=== PATIENT | female | born 1985 | race Caucasian/White ===

== ENCOUNTER → 2016-10-02 | Outpatient (CLI) | payer OTHER ==
--- NOTE | 2016-10-02 10:44 | REP ---
Clinical: Trauma. Injury. Technique: AP, lateral, bilateral oblique views of the left foot. Findings: Subtle nondisplaced fracture/injury at the base of the fifth metatarsal bone involving the proximal metaphysis cannot be excluded and should be correlated with physical examination and point of maximal tenderness. No further acute or healed fracture is identified. Remainder examination demonstrates age-related changes. No subcutaneous emphysema or radiodense foreign body. Impression: Cannot exclude subtle nondisplaced injury involving the proximal metaphysis at the base of the fifth metatarsal bone.
== END ==
LOC: M CLY 10:14
PROVIDERS: ATTEND Family Medicine
DX: S99.922A Unspecified injury of left foot, initial encounter (principal); X58.XXXA Exposure to other specified factors, initial encounter; Y92.89 Other specified places as the place of occurrence of the external cause

== ENCOUNTER → 2017-01-22 | Outpatient (REF) | payer OTHER ==
[2017-01-22 11:36] LABS: MEAN CORPUSCULAR HEMOGLOBIN 30.1 pg (27.0-33.0); MEAN CORPUSCULAR HGB CONC 33.5 g/dl (32.0-36.5); MEAN CORPUSCULAR VOLUME 89.8 fl (80.0-96.0); WHITE BLOOD COUNT 5.9 K/mm3 (4.0-10.0)
[2017-01-22 11:50] LABS: PROGESTERONE < 0.2 NG/ML
[2017-01-22 11:51] LABS: ESTRADIOL 137.7 PG/ML; FOLLICLE STIMULATING HORMONE 4.6 mIU/mL; LUTEINIZING HORMONE 9.2 mIU/mL
[2017-01-22 13:01] LABS: FREE T4 1.06 NG/DL (0.76-1.46)
== END ==
LOC: M SFHCCLAY 08:00
PROVIDERS: ATTEND Family Medicine
DX: N92.6 Irregular menstruation, unspecified (principal); Z01.419 Encounter for gynecological examination (general) (routine) without abnormal findings

== ENCOUNTER → 2017-07-18 | Outpatient (REF) | payer OTHER | LOC: M SFHCCLAY 16:19 | DX: D22.4 Melanocytic nevi of scalp and neck (principal) | CPT/HCPCS: 88305 ==

== ENCOUNTER → 2018-08-12 | Outpatient (CLI) | payer OTHER ==
--- NOTE | 2018-08-12 08:55 | REP ---
Clinical: Bilateral hand pain. Technique: AP, lateral, bilateral oblique views of the right and left hand. Findings: Osseous structures, joint space, and surrounding soft tissues are normal for age and symmetric. No overt osteoarthritic degenerative changes are appreciated. No acute fracture or dislocation identified. Surrounding soft tissues are unremarkable. Impression: Normal, age-appropriate bilateral hand radiograph series. Electronically Signed by Rod Oneill MD 08/12/2018 08:46 A
== END ==
LOC: M CLY 08:11
PROVIDERS: ATTEND Family Medicine
DX: M79.641 Pain in right hand (principal); M79.642 Pain in left hand

== ENCOUNTER → 2018-08-12 | Outpatient (REF) | payer OTHER ==
[2018-08-12 11:59] LABS: BASO % 0.6 % (0.0-1.0); EOS # 0.1 10^3/uL (0.0-0.50); EOS % 1.7 % (0.0-3.0); HEMATOCRIT 40.4 % (36.0-47.0); HEMOGLOBIN 13.3 g/dl (12.0-15.5); LYMPH # 2.3 10^3/uL (1.5-4.5); LYMPH % 32.2 % (24.0-44.0); MEAN CORPUSCULAR HEMOGLOBIN 28.6 pg (27.0-33.0); MEAN CORPUSCULAR HGB CONC 32.9 g/dl (32.0-36.5); MEAN CORPUSCULAR VOLUME 86.9 fl (80.0-96.0); MONO # 0.7 10^3/uL (0.0-0.8); MONO % 10.1 % (0.0-5.0); NEUTROPHILS % 55.3 % (36.0-66.0); PLATELET COUNT, AUTOMATED 250 10^3/uL (150-450); RED BLOOD COUNT 4.65 10^6/uL (4.00-5.40); WHITE BLOOD COUNT 7.2 10^3/uL (4.0-10.0)
[2018-08-12 12:27] LABS: ALT/SGPT 21 U/L (12-78); BILIRUBIN,TOTAL 0.4 MG/DL (0.2-1.0); BLOOD UREA NITROGEN 11 MG/DL (7-18); C REACTIVE PROTEIN QUANTITATIV < 0.30 MG/DL (0.00-0.30); CALCIUM LEVEL 8.4 MG/DL (8.5-10.1); CARBON DIOXIDE LEVEL 23 MEQ/L (21-32); CHLORIDE LEVEL 107 MEQ/L (98-107); CREATININE FOR GFR 0.73 MG/DL (0.55-1.30); GLOMERULAR FILTRATION RATE > 60.0 (>60); GLUCOSE, FASTING 90 MG/DL (70-100); POTASSIUM SERUM 4.3 MEQ/L (3.5-5.1); RHEUMATOID FACTOR QUANT < 10.0 IU/ML (<15.0); SODIUM LEVEL 138 MEQ/L (136-145); THYROXINE (T4) 10.7 UG/DL (4.5-12.0); TOTAL PROTEIN 6.8 GM/DL (6.4-8.2); TOTAL T3 126.1 NG/DL (60.0-181.0)
[2018-08-12 13:07] LABS: ERYTHROCYTE SEDIMENTATION RATE 7 mm/hr (0-20)
[2018-08-14 00:11] LABS: ANA (HEP2) Negative (.); CYCLIC CITRULLINATED PEPTIDE 4 units (0-19); Lyme Disease IgG/IgM Antibodie <0.91 ISR (0.00-0.90); Lyme Disease IgM Ab Quantitati <0.80 index (0.00-0.79)
== END ==
LOC: M SFHCCLAY 07:59
PROVIDERS: ATTEND Family Medicine
DX: M79.641 Pain in right hand (principal); M79.642 Pain in left hand; M25.50 Pain in unspecified joint; R53.83 Other fatigue

== ENCOUNTER 2019-01-10 07:03 | Day surgery (SDC) | payer OTHER ==
[~2019-01-10] VITALS: Ht 157.5 cm; Wt 65.4 kg
[~2019-01-10 07:03] MED LIST: LIDOCAINE 1% MDV 20ML VIAL SQ PRN; LR 1,000 ML IV ONE
[2019-01-10 08:02] LABS: URINE PREG TEST NEGATIVE (NEGATIVE)
[2019-01-10] MEDS ORDERED: dexameTHASONE 4 MG/ML 1ML VIAL (J1100) As Ordered ONE (08:18)
[2019-01-10] MEDS ORDERED: LIDOCAINE 2% INJ 100 MG/5 ML SDV (FOR ANES.) As Ordered ONE (08:18)
[2019-01-10] MEDS ORDERED: ONDANSETRON 4MG/2ML VIAL (J2405) As Ordered ONE (08:18)
[2019-01-10] MEDS ORDERED: PROPOFOL 200 MG/20 ML VIAL As Ordered ONE (08:18)
[2019-01-10] MEDS ORDERED: MIDAZOLAM INJ 2 MG/2 ML VIAL (J2250) As Ordered ONE (08:23)
[2019-01-10] MEDS ORDERED: fentaNYL 100 MCG/2 ML INJECTION (J3010) As Ordered ONE (08:23)
[2019-01-10] MEDS ORDERED: IBUP1TAB7 PO (08:56)
[2019-01-10] MEDS ORDERED: KETOROLAC 60 MG/2 ML VIAL (J1885) As Ordered ONE (09:05)
[2019-01-10] MEDS ORDERED: ACETAMINOPHEN 1000MG 100ML IV BTL (OFIRMEV) (J0131 PER 10MG) As Ordered ONE (09:05)
--- NOTE | 2019-01-10 09:40 | RO ---
DATE OF PROCEDURE: 01/10/2019 Mariya is a 33-year-old female with an extensive history of menorrhagia. After counseling in the office, a decision was made for D and C, hysteroscopy and NovaSure ablation. PREOPERATIVE DIAGNOSIS: Menorrhagia. POSTOPERATIVE DIAGNOSIS: Menorrhagia. PROCEDURE: 1. D and C. 2. Hysteroscopy. 3. NovaSure endometrial ablation. ANESTHESIA: General. SURGEON: Dr. Ribera COMPLICATIONS: None. ESTIMATED BLOOD LOSS: Less than 10 mL. SPECIMENS SENT TO THE LAB: Endometrial curetting. DESCRIPTION OF PROCEDURE: After visiting with the patient in the holding area and reaffirming informed consent, the patient was taken to the operating room where general anesthetic was found to be adequate. She was then draped and prepped in the usual sterile fashion in dorsal lithotomy position. At this point, a straight catheter in the bladder was performed for approximately 300 mL of clear urine. We then placed a weighted speculum in the posterior fornix of the vagina. Using a Nuñez retractor, the anterior lip of the cervix was then grasped with a single-tooth tenaculum. Uterus was sound to approximately 9 cm, giving a cavity length of 6. The cervix was then serially dilated. Hysteroscope was inserted. Normal cavity noted with bilateral tubal ostia visualized and fluffy endometrium also noted. At this point, the hysteroscope was removed. A sharp curettage of the endometrial lining was done and the tissues were sent to pathology for final diagnosis. We then placed the NovaSure device. The cavity length was adjusted to 6, cavity width to 4.5. Cavity test was performed. After passing the cavity test, the device was enabled, and the endometrial ablation cycle was then started. The cycle lasted approximately 76 seconds. Good ablative process noted. Good hemostasis noted. The patient tolerated the procedure well. She was then transferred to recovery room in stable condition.
[2019-01-10] MEDS ORDERED: PERCOCET 5MG/325MG TAB PO PRN ×2 (09:45)
[2019-01-10] MEDS ORDERED: fentaNYL 100 MCG/2 ML INJECTION (J3010) IV PRN (09:45)
[2019-01-10] MEDS ORDERED: LR 1,000 ML IV SCH (09:45)
[2019-01-10] MEDS ORDERED: ONDANSETRON 4MG/2ML VIAL (J2405) IV PRN (09:45)
[2019-01-10] MEDS ORDERED: METOCLOPRAMIDE INJ 10MG/2ML VIAL (J2765) IV PRN (09:45)
[2019-01-10 10:30] VITALS: BP 116/70
[2019-01-10] MEDS ORDERED: IBUPROFEN 800 MG TAB PO SCH (15:00)
== END 2019-01-10 11:08 | disposition home or self-care (01) ==
LOC: M SDC 07:03
PROVIDERS: ATTEND Obstetrics & Gynecology
DX: N92.0 Excessive and frequent menstruation with regular cycle (principal); G43.909 Migraine, unspecified, not intractable, without status migrainosus
CPT/HCPCS: 58356; 84703; 88305; J0131; J1100; J1885; J2250; J2405; J3010

== ENCOUNTER 2019-06-13 13:08 | Emergency (ER) | payer OTHER ==
[~2019-06-13] VITALS: Ht 157.5 cm; Wt 62.7 kg
[~2019-06-13 13:08] MED LIST changes: +IBUP1TAB7 PO; -LIDOCAINE 1% MDV 20ML VIAL SQ PRN; -LR 1,000 ML IV ONE
[2019-06-13] MEDS ORDERED: AZIT-12 (13:29)
[2019-06-13] MEDS ORDERED: PRED20TA (13:29)
[2019-06-13] MEDS ORDERED: IPRATROPIUM 0.5MG/ALBUTEROL 2.5MG INH SOL UD 3ML (DUONEB)(J7620) NEB ONE ×2 (13:30→16:00)
[2019-06-13 13:53] LABS: BASO # 0.1 10^3/uL (0.0-0.2); BASO % 0.3 % (0.0-1.0); EOS % 0.1 % (0.0-3.0); HEMATOCRIT 43.9 % (36.0-47.0); HEMOGLOBIN 14.8 g/dl (12.0-15.5); LYMPH # 2.3 10^3/uL (1.5-5.0); LYMPH % 13.9 % (24.0-44.0); MEAN CORPUSCULAR HEMOGLOBIN 29.4 pg (27.0-33.0); MEAN CORPUSCULAR HGB CONC 33.7 g/dl (32.0-36.5); MEAN CORPUSCULAR VOLUME 87.3 fl (80.0-96.0); MONO # 0.6 10^3/uL (0.0-0.8); MONO % 3.8 % (0.0-5.0); NEUTROPHILS % 80.7 % (36.0-66.0); PLATELET COUNT, AUTOMATED 344 10^3/uL (150-450); RED BLOOD COUNT 5.03 10^6/uL (4.00-5.40); WHITE BLOOD COUNT 16.2 10^3/uL (4.0-10.0)
[2019-06-13 14:02] LABS: INR 0.97; PROTHROMBIN TIME 12.6 SECONDS (11.8-14.0)
[2019-06-13 14:03] LABS: ABG BASE EXCESS -4.6 (-2.0-2.0); ABG HCO3 14.6 MEQ/L (22.0-26.0); ABG O2 SATURATION 98.9 % (95.0-99.0); ABG PARTIAL PRESSURE O2 127.2 mmHg (75.0-100.0); ABG STANDARD HCO3 20.8 MEQ/L (22.0-26.0); ABG TOTAL CO2 15.2 MEQ/L (22.0-29.0)
[2019-06-13 14:06] LABS: ABG PARTIAL PRESSURE CO2 17.1 mmHg (35.0-45.0)
[2019-06-13 14:20] LABS: ALBUMIN 4.1 GM/DL (3.2-5.2); ALT/SGPT 35 U/L (12-78); BILIRUBIN,DIRECT 0.1 MG/DL (0.0-0.2); BILIRUBIN,TOTAL 0.5 MG/DL (0.2-1.0); BLOOD UREA NITROGEN 8 MG/DL (7-18); CALCIUM LEVEL 10.5 MG/DL (8.5-10.1); CARBON DIOXIDE LEVEL 14 MEQ/L (21-32); CHLORIDE LEVEL 111 MEQ/L (98-107); CK-MB VALUE MASS < 1.0 NG/ML (<3.6); CPK CREATINE PHOSPHOKINASE 54 U/L (26-192); CREATININE FOR GFR 1.12 MG/DL (0.55-1.30); GLOMERULAR FILTRATION RATE 58.6 (>60); GLUCOSE, FASTING 133 MG/DL (70-100); MB/CK RELATIVE INDEX 1.85 (< OR =4); NT-PRO BNP 314 PG/ML (<125); POTASSIUM SERUM 3.7 MEQ/L (3.5-5.1); SODIUM LEVEL 141 MEQ/L (136-145); TOTAL PROTEIN 7.5 GM/DL (6.4-8.2); TROPONIN I < 0.02 NG/ML (< 0.10)
[2019-06-13] MEDS ORDERED: ISOVUE-370 76% 100ML VIAL (Q9967) As Ordered ONE (15:05)
--- NOTE | 2019-06-13 15:41 | REP ---
Clinical: Chest pain and shortness of breath with tachycardia . Technique: Axial contrast enhanced images from the thoracic inlet to the upper abdomen using 100 ml Isovue 370 intravenous contrast material with multiplanar re-formations. Findings: Satisfactory enhancement of the pulmonary vasculature is achieved and no filling defects are identified to suggest pulmonary embolus. Further evaluation of the mediastinum demonstrates normal thoracic aorta, heart and pericardium. The bilateral lung [place] are well aerated and clear without consolidation pleural effusion or pneumothorax. Tracheobronchial tree is patent. No nodule or mass lesion is identified. No adenopathy noted. Surrounding musculoskeletal structures intact Impression: No evidence for pulmonary embolus. No acute mediastinal or pleural parenchymal process. Electronically Signed by Rod Oneill MD 06/13/2019 03:32 P
[2019-06-13 16:30] VITALS: BP 135/78
[2019-06-13] MEDS ORDERED: PRED20TA PO (16:50)
[2019-06-13] MEDS ORDERED: VENTAER INH (16:50)
--- NOTE | 2019-06-13 18:22 | ECGEPIP ---
[facility] - ED Test Date: 2019-06-13 Pat Name: DEIDRA HARTMANN Department: Room: - Gender: Female Coffee Maker: : 1985 Requested By: MATEO Garcia Order Number: [id number] Reading MD: Sarita Gil Measurements Intervals [place] Rate: 106 P: 63 LA: 137 QRS: 80 QRSD: 97 T: 43 QT: 338 QTc: 450 Interpretive Statements SINUS TACHYCARDIA WITH OCCASIONAL VENTRICULAR PREMATURE COMPLEXES NSTTW abnormalities baseline artifact may affect interpretation No prior Electronically Signed on 06-13-2019 18:22:28 EST by Sarita Gil
== END 2019-06-13 17:05 | disposition home or self-care (01) ==
LOC: M ED 13:08 → EDBD 13:08 → M ED 17:05
DX: J06.9 Acute upper respiratory infection, unspecified (principal); F41.9 Anxiety disorder, unspecified; G43.909 Migraine, unspecified, not intractable, without status migrainosus; Z88.8 Allergy status to other drugs, medicaments and biological substances
CPT/HCPCS: 36415; 36600; 71275; 80048; 80076; 82550; 82553; 82803; 83880; 84443; 85025; 85610; 87040; 87486; 87581; 87633; 87798; 93005; 93041; 94640; 99285; Q9967

== ENCOUNTER → 2019-08-27 | Outpatient (REF) | payer OTHER ==
[~2019-08-27] MED LIST changes: +AZIT-12; +PRED20TA; +PRED20TA PO; +VENTAER INH
[2019-08-28 12:01] LABS: HEMATOCRIT 41.5 % (36.0-47.0); HEMOGLOBIN 13.8 g/dl (12.0-15.5); MEAN CORPUSCULAR HEMOGLOBIN 30.4 pg (27.0-33.0); MEAN CORPUSCULAR HGB CONC 33.3 g/dl (32.0-36.5); MEAN CORPUSCULAR VOLUME 91.4 fl (80.0-96.0); PLATELET COUNT, AUTOMATED 228 10^3/uL (150-450); RED BLOOD COUNT 4.54 10^6/uL (4.00-5.40); WHITE BLOOD COUNT 7.5 10^3/uL (4.0-10.0)
[2019-08-28 12:08] LABS: MONO SCRN NEGATIVE (NEGATIVE)
== END ==
LOC: M SFHCCLAY 15:20
PROVIDERS: ATTEND Nurse Practitioner Family
DX: J02.9 Acute pharyngitis, unspecified (principal)

== ENCOUNTER → 2019-10-22 | Outpatient (CLI) | payer OTHER | LOC: M LABSMTC 13:22 | PROVIDERS: ATTEND Family Medicine | DX: Z11.59 Encounter for screening for other viral diseases (principal); Z20.828 Contact with and (suspected) exposure to other viral communicable diseases ==

== ENCOUNTER → 2020-08-27 | Outpatient (CLI) | payer OTHER ==
[~2020-08-27] MED LIST changes: +EXCETAB33 PO
== END ==
LOC: M LABSMTC 11:16
PROVIDERS: ATTEND Anesthesiology
DX: Z01.812 Encounter for preprocedural laboratory examination (principal); Z20.822 Contact with and (suspected) exposure to COVID-19

== ENCOUNTER 2020-09-01 08:53 | Day surgery (SDC) | payer OTHER ==
[~2020-09-01] VITALS: Ht 157.5 cm; Wt 64.9 kg
[~2020-09-01 08:53] MED LIST changes: +LIDOCAINE 2% 100MG/5ML SDV (FOR ANES.) As Ordered ONE; +LR 1,000 ML IV ONE; +MIDAZOLAM INJ 2MG/2ML VIAL (J2250 PER 1MG) As Ordered ONE; +ROCURONIUM BROMIDE 50 MG/5 ML VIAL As Ordered ONE; +VASOPRESSIN INJ 20 UNITS/ML VIAL As Ordered ONE; +ceFAZolin SOD 2 GM in IV 1 EA IV ONE; +fentaNYL 100 MCG/2 ML INJECTION (J3010) As Ordered ONE; +propofoL 200 MG/20 ML VIAL As Ordered ONE
--- OUTSIDE RECORDS SUMMARY | 2020-09-01 08:58 | CCD ---
Author Author [facility] ems Organization [facility] ems Address Unknown Phone Unavailable Care Team Providers Care Varnish Melter Helper Name Role Phone Jesus Benavidez Unavailable PROBLEMS Type Condition ICD9-CM Code [id number]-CV Code Onset Dates Condition S tatus SNOMED Code Notes Problem Rectal pain K62.89 Active 92707066 Problem Migraine without aura and without status migrain osus, not intractable G43.009 Active 472624688 Problem Hemorrhoids, unspecified hemorrhoid type K64.9 Active 34435630 Problem Migraine 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, not intractable, unspecified migraine type G43.909 Active 34336935 Problem Migraine headache 346.90 Active 43135925 Problem Metrorrhagia N92.1 Active 51991310 Problem Pain of both hip joints M25.551 Active 95785944 8 Problem Coccyx pain M53.3 Active 28141125 Problem Irregular menses N92.6 Active 902614128 Problem Melanocytic nevi of scalp and neck D22.4 Activ e 146697258 ALLERGIES Allergen (clinical drug ingredient) Drug/Non Drug Allergy do cumented on EMR Reaction Allergy Type Onset Date Status sumatriptan Imitrex(ND Code:[address]-26) Chest Pain Drug Allergy Active Air Duo chest pain Non Drug Allergy Active rizatriptan Maxalt(ND Code:[address]-19) Anaphylaxis Drug Allergy Active ENCOUNTERS from 1985 to 2020-07-20 Encounter Location Date Provider Diagnosis [address] [address] Jun, Jesus Benavidez Migraine without status migrainosus, not intractable, unspecified migraine type G43.909 IMMUNIZATIONS Vaccine Route Administration Date Status TDAP 0.5mL (Boostrix) IM Intramuscular Apr 26, 2015 Administe red Influenza (6mo & up) Fluzone Unknown May 29, 2017 Ref used Influenza (6mo & up) Fluzone IM Intramuscular May 18, 2017 Ad ministered Influenza (6mo & up) Fluzone Unknown October 02, 2016 Ref used SOCIAL HISTORY Tobacco Use: Social History Observation Description Date Details (start date - stop date) Never Smoker Sex Assigned At : Social History Observation Description Sex Assigned At Unknown Audit Question Answer Notes Total Score: 1 Interpretation: Alcohol Education Language: Question Answer Notes Languages spoken: Luxembourgish Muslim: Question Answer Notes Muslim 08 Pentecostal No yazidi beliefs that would impact health care. Domestic Violence: Question Answer Notes Status: Sexual Hx: Question Answer Notes Had sex in the last 12 months (vaginal, oral, or anal)? Yes Have you ever had an STD? No with Men only Use protection? No Drug and Alcohol Question Answer Notes Total Score: 0 Interpretation: No problems reported Alcohol Screening: Question Answer Notes Did you have a drink containing alcohol in the past year? Ye s Points 1 Interpretation Negative How often did you have six or more drinks on one occas ion in the past year? Never (0 points) How many drinks did you have on a typica l day when you were drinking in the past year? 1 or 2 (0 points) How often did you have a drink containing alcohol in t he past year? Monthly or less (1 point) BMI Care Goal Follow-Up Question Answer Notes Above Normal BMI Follow-Up Dietary management educatio n, guidance, and counseling Tobacco Use: Question Answer Notes Are you a: never smoker REASON FOR REFERRAL No Information VITAL SIGNS No information MEDICATIONS Medication SIG (Take, Route, Frequency, Duration) Notes Start Da te End Date Status Relpax 20 MG 1 tablet Orally Once a day as needed for 26 days Jul, Active Symbicort 160-4.5 MCG/ACT 1 puff Inhalation Daily Active Probiotic - as directed Orally Activ e Albuterol Sulfate HFA 108 (90 Base) MCG/ACT 2 puffs as needed Inhalation every 6 hrs Active Multi For Her - as directed Orally A ctive Excedrin PM 500-38 MG 1 tablet at bedtime as needed Orally Once a day Active Diflucan 150 MG 1 tablet Orally qday for 7 day(s) Jun, Not-Taking PROCEDURES No Information RESULTS No Results REASON FOR VISIT PA Reyvow 50mg tablets, #03/14 MEDICAL (GENERAL) HISTORY Type Description Date Medical History Chronic back pain Medical History Migraines Surgical History 4 [place] teeth removed Surgical History Uterine ablation- Dr Devries 12/2018 Hospitalization History Childbirth x4 Hospitalization History Started at [facility] to [facility]-Fatigue,SOB 06/13/19 Hospitalization History Well now -SOB-Zpak and prednisone 06/09/19 Goals Section No Information Health Concerns No Information MEDICAL EQUIPMENT No Information MENTAL STATUS No Information FUNCTIONAL STATUS No Information ASSESSMENTS Encounter Date Diagnosis Assessment Notes Treatment Notes Treatm ent Clinical Notes Jun, Migraine 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, not intractable, unspecified migraine type (ICD-10 - G43.909) PLAN OF TREATMENT Medication Medication Name Sig Start Date Stop Date Relpax 20 MG 1 tablet Orally Once a day as needed for 26 days Jul, Next Appt Details Provider Name:Jesus Benavidez, 08:30:00 AM, [address] [place], [address], Insurance Providers Payer Name Payer Address Payer Phone Insured Name Patient Relati onship to Insured Coverage Start Date Coverage End Date [facility] [address] [facility] [phone] DEIDRA DESOUZA self
--- OUTSIDE RECORDS SUMMARY | 2020-09-01 08:58 | CCD ---
Author Author [facility] ems Organization [facility] ems Address Unknown Phone Unavailable Care Team Providers Care Disassembler Product Name Role Phone Jesus Benavidez Unavailable PROBLEMS Type Condition ICD9-CM Code YFF45-LW Code Onset Dates Condition S tatus W/U Status Risk SNOMED Code Notes Problem Migraine without aura and without status migrain osus, not intractable G43.009 Active confirmed 964585415 Problem Hemorrhoids, unspecified hemorrhoid type K64.9 Active confirmed 53013568 Problem Pain of both hip joints M25.551 Active confirmed 952130121 Problem Metrorrhagia N92.1 Active confirmed 8413008 3 Problem Rectal pain K62.89 Active confirmed 48939101 Problem Mild intermittent reactive airway disease without comp lication J45.20 Active confirmed 544450535 Problem Migraine headache 346.90 Active confirmed 37 268644 Problem Coccyx pain M53.3 Active confirmed 26132594 Problem Irregular menses N92.6 Active confirmed 386 837259 Problem Melanocytic nevi of scalp and neck D22.4 Activ e confirmed 702179454 Problem Migraine 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, not intractable, unspecified migraine type G43.909 Active confirmed 60547119 ALLERGIES Allergen (clinical drug ingredient) Drug/Non Drug Allergy do cumented on EMR Reaction Allergy Type Onset Date Status Air Duo chest pain Non Drug Allergy Active rizatriptan Maxalt([facility] Code:[address]-73) Anaphylaxis Drug Allergy Active naratriptan Amerge(ND Code:[address]-35) chest pressure Drug Allerg y Active budesonide / formoterol Symbicort(ND Code:[address]-24) Trigge rs migraines Drug Allergy Active sumatriptan Imitrex([facility] Code:[address]-94) Chest Pain Drug Allergy Active ENCOUNTERS from 1985 to 2020-08-20 Encounter Location Date Provider Diagnosis [facility] [place] [address] Aug Jesus Benavidez Visit for annual health examination Z00. 00 ; Migraine without status migrainosus, not intractable, unspecified migraine type G43.909 ; Mild intermittent reactive airway disease without complication J45.20 ; Skin tag L91.8 and Arthralgia, unspecified joint M25.50 IMMUNIZATIONS Vaccine Route Administration Date Status TDAP [...] Education Language: Question Answer Notes Languages spoken: Hebrew Adventism: Question Answer Notes Adventism 08 Mormonism No sikhism beliefs that would impact health care. Domestic [...] REASON FOR REFERRAL No Information VITAL SIGNS Weight 142.12 lbs Aug, Height 62 1/4 in Aug, BMI 25.78 kg/m2 Aug, Heart Rate 88 /min Aug, Respiratory Rate 16 /min Aug, Temperature 97.3 degrees Fahrenheit Aug, Oximetry 100ra Aug, Blood pressure systolic 111 mm Hg Aug, Blood pressure diastolic 72 mm Hg Aug, MEDICATIONS Medication SIG (Take, Route, Frequency, Duration) Notes Start Da te End Date Status Multi For Her - as directed Orally A ctive Relpax 20 MG 1 tablet Orally Once a day as needed for 26 days Jul, Active Excedrin PM 500-38 MG 1 tablet at bedtime as needed Orally Once a day Active Probiotic - as directed Orally Activ e Albuterol Sulfate HFA 108 (90 Base) MCG/ACT 2 puffs as needed Inhalation every 6 hrs Active PROCEDURES No Information RESULTS No Results REASON FOR VISIT YEARLY PX MEDICAL (GENERAL) HISTORY Type Description Date Medical History Chronic back pain Medical History Migraines Surgical History 4 [place] teeth removed Surgical History Uterine ablation- Dr Devries 12/2018 Hospitalization History Childbirth x4 Hospitalization History Started at [facility] to S -Fatigue,SOB 06/13/19 Hospitalization History Well now [facility] [place] Goals Section No Information Health Concerns No Information MEDICAL EQUIPMENT No Information MENTAL STATUS No Information FUNCTIONAL STATUS No Information ASSESSMENTS Encounter Date Diagnosis Assessment Notes Treatment Notes Treatm ent Clinical Notes Aug, Visit for annual health examination (ICD-10 - Z0 0.00) Imms are up to date. Screening is up to date. Aug, Migraine 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, not intractable, unspecified migraine type (ICD-10 - G43.909) We discussed options, triggers and at this point she is not needing or considering preventative daily meds. She is practicing as much avoidance as possible. She has not tolerated triptans well, has relpax to use if needed but frequency is improved off symbicort so will cont with current regimen. Pt agreeable. Aug, Mild intermittent reactive a irway disease without complication (ICD-10 - J45.20) Cont with pulmonary, even if only prn as she is improved. Aug, Skin tag (ICD-10 - L91.8) Will schedule removal. Aug, Arthralgia, unspecified joint (ICD-10 - M25.50) Stable currently. PLAN OF TREATMENT Treatment Notes Assessment Notes Clinical Notes Visit for annual health examination Imms are up to date. Screening is up to date. Migraine without status migrainosus, not intractable, unspecified migraine type We discussed options, triggers and at th is point she is not needing or considering preventative daily meds. She is practicing as much avoidance as possible. She has not tolerated triptans well, has relpax to use if needed but frequency is improved off symbicort so will cont with current regimen. Pt agreeable. Mild intermittent reactive airway disease without complicati on Cont with pulmonary, even if only prn as she is improved. Skin tag Will schedule remova l. Arthralgia, unspecified joint Stable cur rently. Next Appt Details skin tag removal Reason: Provider Name:Jesus Benavidez, 08:30:00 AM, [address] [place], [address], Insurance Providers Payer Name Payer Address Payer Phone Insured Name Patient Relati onship to Insured Coverage Start Date Coverage End Date [facility] [address] [facility] [address] DEIDRA HARTMANN self
--- OUTSIDE RECORDS SUMMARY | 2020-09-01 08:58 | CCD ---
Author Author [facility] ems Organization [facility] ems Address Unknown Phone Unavailable Care Team Providers Care Ct Technician Name Role Phone Jesus Benavidez Unavailable PROBLEMS Type Condition ICD9-CM Code VFF54-YP Code Onset Dates Condition S tatus SNOMED Code Notes Problem Rectal pain K62.89 Active 05685082 Problem Migraine without aura and without status migrain osus, not intractable G43.009 Active 858129957 Problem Hemorrhoids, unspecified hemorrhoid type K64.9 Active 84457210 Problem Migraine 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, not intractable, unspecified migraine type G43.909 Active 29911559 Problem Migraine headache 346.90 Active 17269224 Problem Metrorrhagia N92.1 Active 38806417 Problem Pain of both hip joints M25.551 Active 59824195 8 Problem Coccyx pain M53.3 Active 65685255 Problem Irregular menses N92.6 Active 370728125 Problem Melanocytic nevi of scalp and neck D22.4 Activ e 841298392 ALLERGIES Allergen (clinical drug ingredient) Drug/Non Drug Allergy do cumented on EMR Reaction Allergy Type Onset Date Status sumatriptan Imitrex(ND Code:[address]-27) Chest Pain Drug Allergy Active Air Duo chest pain Non Drug Allergy Active rizatriptan Maxalt(ND Code:[address]-53) Anaphylaxis Drug Allergy Active ENCOUNTERS from 1985 to 2020-07-19 Encounter Location Date Provider Diagnosis [address] [address] [place] [address] Jun Jesus Benavidez Migraine without status migrainosus, not [...] Education Language: Question Answer Notes Languages spoken: French Tenriism: Question Answer Notes Tenriism 08 Anabaptism No lutheran beliefs that would impact health care. Domestic [...] FOR REFERRAL No Information VITAL SIGNS Weight 149 lbs Jun, Height 62 1/4 in Jun, BMI 27.03 kg/m2 Jun, Heart Rate 82 /min Jun, Respiratory Rate 18 /min Jun, Temperature 98.4 degrees Fahrenheit Jun, Oximetry 99%RA Jun, Blood pressure systolic 124 mm Hg Jun, Blood pressure diastolic 85 mm Hg Jun, MEDICATIONS Medication SIG (Take, Route, Frequency, Duration) [...] Information RESULTS No Results REASON FOR VISIT struggling with migraines has been on something in the past MEDICAL (GENERAL) HISTORY Type Description Date Medical History Chronic back pain Medical History Migraines Surgical History 4 [place] teeth removed Surgical History Uterine ablation- Dr Devries 12/2018 Hospitalization History Childbirth x4 Hospitalization History Started at [facility] to [facility]-Fatigue,SOB 06/13/19 Hospitalization History Well now -SOB-Zpak and [...] and at this point she is not really interested in preventative daily meds. She is practicing as much avoidance as possible. She has not tolerated triptans well, will trial Reyvow. New medication risks and benefits reviewed and discussed with patient. Pt is agreeable and will recheck at scheduled appt in one month. PLAN OF TREATMENT Medication Medication Name Sig Start Date Stop Date Relpax 20 MG 1 tablet Orally Once a day as needed for 26 days Jul, Treatment Notes Assessment Notes Clinical Notes Migraine without status migrainosus, not intractable, unspecified migraine type We discussed options, triggers and at th is point she is not really interested in preventative daily meds. She is practicing as much avoidance as possible. She has not tolerated triptans well, will trial Reyvow. New medication risks and benefits reviewed and discussed with patient. Pt is agreeable and will recheck at scheduled appt in one month. Next Appt Details as scheduled Reason: Provider Name:Jesus Benavidez, 08:30:00 AM, [address], [place], [address], Insurance Providers Payer Name Payer Address Payer Phone Insured Name Patient Relati onship to Insured Coverage Start Date Coverage End Date [facility] [employer] [facility] [address] [facility] [phone] DEIDRA HARTMANN self
--- OUTSIDE RECORDS SUMMARY | 2020-09-01 08:58 | CCD ---
Author Author [facility] Syst ems Organization [facility] ems Address Unknown Phone Unavailable Care Team Providers Care Merchandise Collector Name Role Phone NorwayDeny pinzon Unavailable PROBLEMS Type Condition ICD9-CM Code KAX55-VO Code Onset Dates Condition S tatus SNOMED Code Notes Problem Rectal pain K62.89 Active 67116654 Problem Migraine without aura and without status migrain osus, not intractable G43.009 Active 737144394 Problem Hemorrhoids, unspecified hemorrhoid type K64.9 Active 09268579 Problem Migraine 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, not intractable, unspecified migraine type G43.909 Active 37776831 Problem Migraine headache 346.90 Active 94314600 Problem Metrorrhagia N92.1 Active 51369672 Problem Pain of both hip joints M25.551 Active 94089903 8 Problem Coccyx pain M53.3 Active 00021983 Problem Irregular menses N92.6 Active 209230950 Problem Melanocytic nevi of scalp and neck D22.4 Activ e 380462063 ALLERGIES Allergen (clinical drug ingredient) Drug/Non Drug Allergy do cumented on EMR Reaction Allergy Type Onset Date Status sumatriptan Imitrex([facility] Code:[address]-12) Chest Pain Drug Allergy Active rizatriptan Maxalt(ND Code:[address]-69) Anaphylaxis Drug Allergy Active ENCOUNTERS from 1983 to 2020-07-06 Encounter Location Date Provider Diagnosis [facility] [address] [place] [address] Jun Deny Estrada Oral candidiasis B37.0 IMMUNIZATIONS Vaccine Route Administration Date Status TDAP [...] Education Language: Question Answer Notes Languages spoken: Kenyan Sabianism: Question Answer Notes Sabianism 08 Tenriism No quaker beliefs that would impact health care. Domestic [...] Jun, BMI 27.03 kg/m2 Jun, Heart Rate 86 /min Jun, Respiratory Rate 16 /min Jun, Temperature 99.5 degrees Fahrenheit Jun, Oximetry 98 Jun, Blood pressure systolic 116 mm Hg Jun, Blood pressure diastolic 68 mm Hg Jun, MEDICATIONS Medication SIG (Take, Route, Frequency, Duration) Notes Start Da te End Date Status Multi For Her - as directed Orally A ctive Probiotic - as directed Orally Activ e Albuterol Sulfate HFA 108 (90 Base) MCG/ACT 2 puffs as needed Inhalation every 6 hrs Not-Taking Symbicort 160-4.5 MCG/ACT 2 puffs Inhalation Twice a day Active Excedrin PM 500-38 MG 1 tablet at bedtime as needed Orally Once a day Not-Taking Diflucan 150 MG 1 tablet Orally qday for 7 day(s) Jun, Active PROCEDURES No Information RESULTS No Results REASON FOR VISIT thrush MEDICAL (GENERAL) HISTORY Type Description Date Medical History Chronic back pain Medical History Migraines Surgical History 4 [place] teeth removed Surgical History Uterine ablation- Dr Devries 12/2018 Hospitalization History Childbirth x4 Hospitalization History Started at [facility]-ambulance to S -Fatigue,SOB 06/13/19 Hospitalization History Well now -SOB-Zpak and prednisone 06/09/19 Goals Section No Information Health Concerns No Information MEDICAL EQUIPMENT No Information MENTAL STATUS No Information FUNCTIONAL STATUS No Information ASSESSMENTS Encounter Date Diagnosis Assessment Notes Treatment Notes Treatm ent Clinical Notes Jun, Oral candidiasis (ICD-10 - B37.0) You could have an oral fungal infection caused by overgrowth of [place] albicans that causes creamy patches to appear on the tongue or other places in the mouth. This is usually a minor infection that sometimes can cause a burning or uncomfortable sensation. However, after completing the medication that was prescribed for that, having the other systemic symptoms, and having other family members with similar symptoms-- this is more likely because by a virus. Rest and drink clear fluids. Take Diflucan as directed. Close monitoring at this time. Jun, Other Medication/s di scussed with patient and questions answered. RTC as needed for worsening or unresolved symptoms. Patient states understanding and agreement with this plan. PLAN OF TREATMENT Medication Medication Name Sig Start Date Stop Date Diflucan 150 MG 1 tablet Orally qday for 7 day(s) Jun, Treatment Notes Assessment Notes Clinical Notes Oral candidiasis You could have an oral funga l infection caused by overgrowth of [place] albicans that causes creamy patches to appear on the tongue or other places in the mouth. This is usually a minor infection that sometimes can cause a burning or uncomfortable sensation. However, after completing the medication that was prescribed for that, having the other systemic symptoms, and having other family members with similar symptoms-- this is more likely because by a virus. Rest and drink clear fluids. Take Diflucan as directed. Close monitoring at this time. Next Appt Details 2 - 3 Days unless improving Reason: Provider Name:Jesus Benavidez, 08:30:00 AM, [address], [place], [address], Insurance Providers Payer Name Payer Address Payer Phone Insured Name Patient Relati onship to Insured Coverage Start Date Coverage End Date FORMERLY [facility] [place] [address] [facility] [phone] [phone] DEIDRA HARTMANN self
--- OUTSIDE RECORDS SUMMARY | 2020-09-01 08:58 | CCD ---
Author Author [facility] Syst ems Organization [facility] ems Address Unknown Phone Unavailable Care Team Providers Care Tire Fixer Name Role Phone Jesus Benavidez Unavailable PROBLEMS Type Condition ICD9-CM Code RMT86-WG Code Onset Dates Condition S tatus W/U Status Risk SNOMED Code Notes Problem Migraine without aura and without status migrain osus, not intractable G43.009 Active confirmed 766017844 Problem Hemorrhoids, unspecified hemorrhoid type K64.9 Active confirmed 43067686 Problem Pain of both hip joints M25.551 Active confirmed 442200257 Problem Metrorrhagia N92.1 Active confirmed 2401039 3 Problem Rectal pain K62.89 Active confirmed 30140137 Problem Mild intermittent reactive airway disease without comp lication J45.20 Active confirmed 981660495 Problem Migraine headache 346.90 Active confirmed 37 483118 Problem Coccyx pain M53.3 Active confirmed 17678226 Problem Irregular menses N92.6 Active confirmed 386 050726 Problem Melanocytic nevi of scalp and neck D22.4 Activ e confirmed 471435030 Problem Migraine 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, not intractable, unspecified migraine type G43.909 Active confirmed 08430432 ALLERGIES Allergen (clinical drug ingredient) Drug/Non Drug Allergy do cumented on EMR Reaction Allergy Type Onset Date Status Air Duo chest pain Non Drug Allergy Active rizatriptan Maxalt([facility] Code:[address]-51) Anaphylaxis Drug Allergy Active naratriptan Amerge(ND Code:[address]-48) chest pressure Drug Allerg y Active budesonide / formoterol Symbicort(ND Code:[address]-99) Trigge rs migraines Drug Allergy Active sumatriptan Imitrex([facility] Code:[address]-06) Chest Pain Drug Allergy Active ENCOUNTERS from 1983 to 2020-08-23 Encounter Location Date Provider Diagnosis [facility] [place] [place] [address] Aug Jesus Benavidez Skin tag L91.8 IMMUNIZATIONS Vaccine Route Administration Date Status TDAP [...] Education Language: Question Answer Notes Languages spoken: Czech Gnosticist: Question Answer Notes Gnosticist 08 Uatsdin No christianity beliefs that would impact health care. Domestic [...] FOR REFERRAL No Information VITAL SIGNS Weight 143 lbs Aug, Height 62 1/4 in Aug, BMI 25.94 kg/m2 Aug, Heart Rate 83 /min 04 Feb, 2021 Respiratory Rate 16 /min Aug, Temperature 99.1 degrees Fahrenheit Aug, Oximetry 100ra Aug, Blood pressure systolic 117 mm Hg Aug, Blood pressure diastolic 67 mm Hg Aug, MEDICATIONS Medication SIG (Take, [...] needed Inhalation every 6 hrs Active PROCEDURES from 1983 to 2020-08-23 Procedure Date Ordered Result Body Site Medication: Silver Nitrate Stick topically 2020-08-19 N/A RESULTS No Results REASON FOR VISIT Patient here for skin tag removal, procedure explained- consent signed MEDICAL (GENERAL) HISTORY Type Description Date Medical History Chronic back pain Medical History Migraines Surgical History 4 [place] teeth removed Surgical History Uterine ablation- Dr Devries 12/2018 Hospitalization History Childbirth x4 Hospitalization History Started at [facility] to S -Fatigue,SOB 06/13/19 Hospitalization History Well now -SOB-Zpak and prednisone 06/09/19 Goals Section No Information Health Concerns No Information MEDICAL EQUIPMENT No Information MENTAL STATUS No Information FUNCTIONAL STATUS No Information ASSESSMENTS Encounter Date Diagnosis Assessment Notes Treatment Notes Treatm ent Clinical Notes Aug, Skin tag (ICD-10 - L91.8) F/u prn. Pt agreeable. PLAN OF TREATMENT Treatment Notes Assessment Notes Clinical Notes Skin tag F/u prn. Pt agreeab le. Next Appt Details 1 Year Reason:Annual visit Provider Name:Jesus Blackwell Papoelyssa, 08:30:00 AM, [place] [place], [address], Follow Up:1 YearAnnual visit Insurance Providers Payer Name Payer Address Payer Phone Insured Name Patient Relati onship to Insured Coverage Start Date Coverage End Date [facility] [address] [facility] [address] [phone] DEIDRA HARTMANN self
--- OUTSIDE RECORDS SUMMARY | 2020-09-01 08:58 | CCD ---
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, not intractable, unspecified migraine type G43.909 Active 52669903 Problem Migraine headache 346.90 Active 00279435 Problem Metrorrhagia N92.1 Active 23734422 Problem Pain of both hip joints M25.551 Active 69375060 8 Problem Coccyx pain M53.3 Active 57939725 Problem Irregular menses N92.6 Active 405706627 Problem Melanocytic nevi of scalp and neck D22.4 Activ e 872668122 ALLERGIES Allergen (clinical drug ingredient) Drug/Non Drug Allergy do cumented on EMR Reaction Allergy Type Onset Date Status sumatriptan Imitrex([facility] Code:[address]-93) Chest Pain Drug Allergy Active rizatriptan Maxalt(ND Code:[address]-61) Anaphylaxis Drug Allergy Active ENCOUNTERS from 1983 to 2020-07-02 Encounter Location Date Provider Diagnosis [facility] [address] [place] [address] 18 Jun Deny Estrada IMMUNIZATIONS Vaccine Route Administration Date Status TDAP [...] Education Language: Question Answer Notes Languages spoken: Syriac Pentecostal: Question Answer Notes Pentecostal 08 Lutheran No mu-ism beliefs that would impact health care. Domestic [...] pain Medical History Migraines Surgical History 4 [place] teeth removed Surgical History Uterine ablation- Dr Devries 12/2018 Hospitalization History Childbirth x4 Hospitalization History Started at [facility] to S [facility]-Fatigue,SOB 06/13/19 Hospitalization History Well now [facility]-SOB-Zpak and prednisone 06/09/19 Goals Section No Information Health Concerns No Information MEDICAL EQUIPMENT No Information MENTAL STATUS No Information FUNCTIONAL STATUS No Information ASSESSMENTS No Information PLAN OF TREATMENT Medication Medication Name Sig Start Date Stop Date Diflucan 150 MG 1 tablet Orally qday for 7 day(s) Jun, Next Appt Details Provider Name:Jesus Benavidez, 08:30:00 AM, [address] , [place], [address], Insurance Providers Payer Name Payer Address Payer Phone Insured Name Patient Relati onship to Insured Coverage Start Date Coverage End Date FORMERLY [facility]AN [facility] [address] [facility] [address] DEIDRA HARTMANN self
--- OUTSIDE RECORDS SUMMARY | 2020-09-01 08:58 | CCD ---
Author Author [facility] Syst ems Organization 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, not intractable, unspecified migraine type G43.909 Active 17688942 Problem Migraine headache 346.90 Active 38230146 Problem Metrorrhagia N92.1 Active 75654623 Problem Pain of both hip joints M25.551 Active 94641849 8 Problem Coccyx pain M53.3 Active 99574399 Problem Irregular menses N92.6 Active 999319432 Problem Melanocytic nevi of scalp and neck D22.4 Activ e 939857862 ALLERGIES Allergen (clinical drug ingredient) Drug/Non Drug Allergy do cumented on EMR Reaction Allergy Type Onset Date Status sumatriptan Imitrex([facility] Code:[address]-25) Chest Pain Drug Allergy Active Air Duo chest pain Non Drug Allergy Active rizatriptan Maxalt([facility] Code:[address]-87) Anaphylaxis Drug Allergy Active ENCOUNTERS from 1983 to 2020-07-20 Encounter Location Date Provider Diagnosis [address] [address] Jul, Jesus Walkerlinkdede Migraine without status migrainosus, not intractable, unspecified [...] Education Language: Question Answer Notes Languages spoken: Albanian Samaritan: Question Answer Notes Samaritan 08 Sabianist No mu-ism beliefs that would impact health [...] RESULTS No Results REASON FOR VISIT PA Eletriptan (Relpax) 20mg tablets, #03/14 MEDICAL (GENERAL) HISTORY Type Description Date Medical History Chronic back pain Medical History Migraines Surgical History 4 [place] teeth removed Surgical History Uterine ablation- Dr Devries 12/2018 Hospitalization History Childbirth x4 Hospitalization History Started at [facility]-ambulance to [facility]-Fatigue,SOB 06/13/19 Hospitalization History Well now -SOB-Zpak and prednisone 06/09/19 Goals Section No Information Health Concerns No Information MEDICAL EQUIPMENT No Information MENTAL STATUS No Information FUNCTIONAL STATUS No Information ASSESSMENTS Encounter Date Diagnosis Assessment Notes Treatment Notes Treatm ent Clinical Notes Jul, Migraine 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, not intractable, unspecified migraine type (ICD-10 - G43.909) PLAN OF TREATMENT Medication Medication Name Sig Start Date Stop Date Relpax 20 MG 1 tablet Orally Once a day as needed for 26 days Jul, Next Appt Details Provider Name:Jesus Benavidez, 08:30:00 AM, [address] [place], [address], Insurance Providers Payer Name Payer Address Payer Phone Insured Name Patient Relati onship to Insured Coverage Start Date Coverage End Date [facility] [place] [address] [facility] [address] [phone] DEIDRA HARTMANN self
--- OUTSIDE RECORDS SUMMARY | 2020-09-01 08:58 | CCD ---
Author Author [facility] Organization [facility] Address Unknown Phone Unavailable Care Team Providers Care Clearance Rep Name Role Phone Rechlin, Pawan Mason DO Unavailable Unavailable Rechlin, Pawan Mason DO Unavailable Unavailable Rechlin, Pawan Mason DO Unavailable Unavailable Rechlin, Pawan Mason DO Unavailable Unavailable Rechlin, Pawan Mason DO Unavailable Unavailable Rechlin, Pawan Mason DO Unavailable Unavailable Rechlin, Pawan Mason DO Unavailable Unavailable Rechlin, Pawan Mason DO Unavailable Unavailable Rechlin, Pawan Mason DO Unavailable Unavailable Rechlin, Pawan Mason DO Unavailable Unavailable Rechlin, P Marlon DO Unavailable Unavailable Rechlin, P Marlon DO Unavailable Unavailable Rechlin, P Marlon DO Unavailable Unavailable Rechlin, P Marlon DO Unavailable Unavailable Rechlin, P Marlon DO Unavailable Unavailable Rechlin, P Marlon DO Unavailable Unavailable Rechlin, P Marlon DO Unavailable Unavailable Rechlin, P Marlon DO Unavailable Unavailable Rechlin, P Marlon DO Unavailable Unavailable Rechlin, P Marlon DO Unavailable Unavailable Rechlin, P Marlon DO Unavailable Unavailable Rechlin, P Marlon DO Unavailable Unavailable Rechlin, P Marlon DO Unavailable Unavailable Rechlin, P Marlon DO Unavailable Unavailable Rechlin, P Marlon DO Unavailable Unavailable Rechlin, P Marlon DO Unavailable Unavailable Rechlin, P Marlon DO Unavailable Unavailable Rechlin, P Marlon DO Unavailable Unavailable Rechlin, P Marlon DO Unavailable Unavailable Rechlin, P Marlon DO Unavailable Unavailable Rechlin, P Marlon DO Unavailable Unavailable Rechlin, P Marlon DO Unavailable Unavailable Rechlin, P Marlon DO Unavailable Unavailable Rechlin, P Marlon DO Unavailable Unavailable Rechlin, P Marlon DO Unavailable Unavailable Rechlin, P Marlon DO Unavailable Unavailable Rechlin, P Marlon DO Unavailable Unavailable Rechlin, P Marlon DO Unavailable Unavailable Rechlin, P Marlon DO Unavailable Unavailable Rechlin, P Marlon DO Unavailable Unavailable Rechlin, P Marlon DO Unavailable Unavailable Rechlin, P Marlon DO Unavailable Unavailable Rechlin, P Marlon DO Unavailable Unavailable Rechlin, P Marlon DO Unavailable Unavailable Rechlin, P Marlon DO Unavailable Unavailable Rechlin, P Marlon DO Unavailable Unavailable Rechlin, P Marlon DO Unavailable Unavailable Rechlin, P Marlon DO Unavailable Unavailable Re-disclosure Warning The records that you are about to access may contain information from federally-assisted alcohol or drug abuse programs. If such information is present, then the following federally mandated warning applies: This information has been disclosed to you from records protected by federal confidentiality rules (42 CFR part 2). The federal rules prohibit you from making any further disclosure of this information unless further disclosure is expressly permitted by the written consent of the person to whom it pertains or as otherwise permitted by 42 CFR part 2. A general authorization for the release of medical or other information is NOT sufficient for this purpose. The Federal rules restrict any use of the information to criminally investigate or prosecute any alcohol or drug abuse patient.The records that you are about to access may contain highly sensitive health information, the redisclosure of which is protected by Article 27-F of the [facility] Public Health law. If you continue you may have access to information: Regarding HIV / AIDS; Provided by facilities licensed or operated by the [facility] Office of Mental Health; or Provided by the [facility] Office for People With Developmental Disabilities. If such information is present, then the following [facility] mandated warning applies: This information has been disclosed to you from confidential records which are protected by state law. State law prohibits you from making any further disclosure of this information without the specific written consent of the person to whom it pertains, or as otherwise permitted by law. Any unauthorized further disclosure in violation of state law may result in a fine or custodial sentence or both. A general authorization for the release of medical or other information is NOT sufficient authorization for further disc losure. Allergies and Adverse Reactions Type Description Substance Reaction Status Data Source(s ) Drug allergy Imitrex Sumatriptan Chest Pain Active eCW1 ([facility]) Drug allergy Maxalt rizatriptan Anaphylaxis Active eCW1 ([facility]) Family History Family Member Name Family Member Gender Family Member Status Date o f Status Description Data Source(s) Unknown Male Problem MEDENT ([facility]) Encounters Encounter Providers Location Date Indications Data Source(s ) [place] [address] [facility] [address] 08/27/2020 12:00:00 AM EST eCW1 ([facility]) Unknown [address] [facility] [place] [address] 08/27/2020 12:00:00 AM EST eCW1 ([facility]) Outpatient [address] [facility] [place] [address] 08/19/2020 12:00:00 AM EST eCW1 ([facility]) Outpatient [address] [facility] [place] [address] 08/16/2020 12:00:00 AM EST eCW1 ([facility]) Unknown [address] [facility] [place] [address] 07/19/2020 12:00:00 AM EST eCW1 ([facility]) [place] [address] [facility] [address] 07/15/2020 12:00:00 AM EST eCW1 ([facility]) [place] [address] [facility] [address] 07/15/2020 12:00:00 AM EST eCW1 ([facility]) Outpatient [address] [facility] [place] [address] 07/02/2020 12:00:00 AM EST eCW1 ([facility]) Unknown [address] [facility] [place] [address] 07/02/2020 12:00:00 AM EST eCW1 ([facility]) Outpatient Attender: Marlon Ochoa/Brayan/Yaw/Flaco ndl 05/17/2020 09:30:00 AM EST MEDENT ([facility]) Outpatient Attender: Marlon Ochoa/Brayan/Yaw/Flaco ndananya 03/23/2020 03:00:00 PM EDT MEDENT ([facility]) Formerly [facility], [facility] [address] [facility] [address] 02/05/2020 12:00:00 AM EDT eCW1 ([facility]) [facility] [address] [place] [address] [place] [address] 08/29/2019 12:00:00 AM EST eCW1 ([facility]) [address] [place] [address] 08/27/2019 12:00:00 AM EST eCW1 ([facility]) [facility] [address] [place] [address] [place] [address] 08/27/2019 12:00:00 AM EST eCW1 ([facility]) [address], [place] [address] 08/14/2019 12:00:00 AM EST eCW1 ([facility]) Medications Medication Brand Name Start Date Product Form Dose Route Admi nistrative Instructions Pharmacy Instructions Status Indications Reaction Description Data Source(s) Ondansetron 4 MG Oral Tablet [Zofran] Zofran 4 MG Zofran 4 M G 08/27/2020 12:00:00 AM EST 1.0 {tablet} active Zo gianna 4 MG eCW1 ([facility]) Ondansetron 4 MG Oral Tablet [Zofran] Zofran 4 MG Zofran 4 M G 08/27/2020 12:00:00 AM EST 1.0 {tablet} active Zo gianna 4 MG eCW1 ([facility]) eletriptan 20 MG Oral Tablet ELETRIPTAN HYDROBROMIDE 07/20/2020 12:00:00 AM EST tablet 6 TAKE ONE TABLET BY MOUTH ONCE DA GAYLA NEEDED TAKE ONE TABLET BY MOUTH ONCE DAILY NEEDED SOLD: 07/20/2020 [facility] eletriptan 20 MG Oral Tablet [Relpax] Relpax 20 MG Relpax 20 MG 07/19/2020 12:00:00 AM EST 1.0 {tablet} active Re lpax 20 MG eCW1 ([facility]) eletriptan 20 MG Oral Tablet [Relpax] Relpax 20 MG Relpax 20 MG 07/19/2020 12:00:00 AM EST 1.0 {tablet} active Re lpax 20 MG eCW1 ([facility]) eletriptan 20 MG Oral Tablet [Relpax] Relpax 20 MG Relpax 20 MG 07/19/2020 12:00:00 AM EST 1.0 {tablet} active Re lpax 20 MG eCW1 ([facility]) eletriptan 20 MG Oral Tablet [Relpax] Relpax 20 MG Relpax 20 MG 07/19/2020 12:00:00 AM EST 1.0 {tablet} active Re lpax 20 MG eCW1 ([facility]) eletriptan 20 MG Oral Tablet [Relpax] Relpax 20 MG Relpax 20 MG 07/19/2020 12:00:00 AM EST 1.0 {tablet} active Re lpax 20 MG eCW1 ([facility]) eletriptan 20 MG Oral Tablet [Relpax] Relpax 20 MG Relpax 20 MG 07/19/2020 12:00:00 AM EST 1.0 {tablet} active Re lpax 20 MG eCW1 ([facility]) eletriptan 20 MG Oral Tablet [Relpax] Relpax 20 MG Relpax 20 MG 07/19/2020 12:00:00 AM EST 1.0 {tablet} active Re lpax 20 MG eCW1 ([facility]) Fluconazole 150 MG Oral Tablet [Diflucan] Diflucan 150 MG Di flucan 150 MG 07/02/2020 12:00:00 AM EST 1.0 {tablet} suspended Diflucan 150 MG eCW1 ([facility]) Fluconazole 150 MG Oral Tablet [Diflucan] Diflucan 150 MG Di flucan 150 MG 07/02/2020 12:00:00 AM EST 1.0 {tablet} suspended Diflucan 150 MG eCW1 ([facility]) 150 mg 07/02/2020 12:00:00 AM EST tablet 7 TAKE ONE TABLET BY MOUTH EVERY DAY FOR 7 DAYS TAKE ONE TABLET BY MOUTH EVERY DAY FOR 7 DAYS SOLD: 07/02/2020 [facility] Fluconazole 150 MG Oral Tablet [Diflucan] Diflucan 150 MG Di flucan 150 MG 07/02/2020 12:00:00 AM EST 1.0 {tablet} active Diflucan 150 MG eCW1 ([facility]) Fluconazole 150 MG Oral Tablet [Diflucan] Diflucan 150 MG Di flucan 150 MG 07/02/2020 12:00:00 AM EST 1.0 {tablet} suspended Diflucan 150 MG eCW1 ([facility]) Fluconazole 150 MG Oral Tablet [Diflucan] Diflucan 150 MG Di flucan 150 MG 07/02/2020 12:00:00 AM EST 1.0 {tablet} active Diflucan 150 MG eCW1 ([facility]) 10 mg 06/21/2020 12:00:00 AM EST maxine 70 DISSOLVE 1 TABLET BY MOUTH FIVE TIMES DAILY FOR 14 DAYS DISSOLVE 1 TABLET BY MOUTH FIVE TIMES DAILY FOR 14 DAY S SOLD: 06/22/2020 [facility] 160-4.5 mcg/actuation 06/15/2020 12:00:00 AM EST HFA aerosol inhaler 30 INHALE TWO PUFFS BY MOUTH TWICE A DAY WITH SPACER. RINSE MOUTH AFTER USING INHALE TWO PUFFS BY MOUTH TWICE A DAY WITH SPACER. RINSE MOUTH AFTER USING SOLD: 06/19/2020 [facility] 90 mcg/actuation 06/09/2020 12:00:00 AM EST HFA aerosol inha ler 8 INHALE TWO PUFFS BY MOUTH EVERY 4 HOURS NEEDED INHALE TWO PUFFS BY MOUTH EVERY 4 HOURS NEEDED SOLD: 06/19/2020 [facility] 60 ACTUAT Budesonide 0.08 MG/ACTUAT / fo rmoterol fumarate 0.0045 MG/ACTUAT Metered Dose Inhaler [Symbicort] Symbicort 05/17/2020 12:00:00 AM EST RESPIRATORY active MEDENT ( [facility]) 113-14 mcg/actuation 03/30/2020 12:00:00 AM EDT aerosol powdr breath activated 1 INHALE ONE PUFF BY MOUTH TWICE A DAY INHA LE ONE PUFF BY MOUTH TWICE A DAY SOLD: 04/02/2020 [facility] Airduo Respiclick 113/14 Airduo Respiclick 113/14 03/29/2020 12:00: 00 AM EDT ORAL completed MEDENT ([facility], ) INHALER, ASSIST DEVICES 03/24/2020 12:00:00 AM EDT spacer 1 USE DIRECTED WITH SYMBICORT USE DIRECTED WITH SYMBICORT SOLD: 03/25/2020 [facility] Aerochamber W/Flowsignal 03/23/2020 12:00:00 AM EDT active MEDENT ([facility], ) 60 ACTUAT Budesonide 0.16 MG/ACTUAT / fo rmoterol fumarate 0.0045 MG/ACTUAT Metered Dose Inhaler [Symbicort] Symbicort 03/23/2020 12:00:00 AM EDT RESPIRATORY completed MEDENT ( [facility], ) Insurance Providers Payer name Policy type / Coverage type Policy ID Covered libertarian ID Covered libertarian's relationship to sears Policy Sears Plan Information [facility] [id number] SP [id number] [facility] [id number] SP [id number] [facility] O [id number] S [id number] [facility]-Medicaid [id number] ANS-Medicaid [id number] Ghi FHP-(DO Not Use) Medigap Part B [id number] Self [id number] [facility] Community Plan Commercial [id number] Self [id number] Ghi FHP-(DO Not Use) Medigap Part B [id number] Self [id number] [facility] Plan Commercial [id number] Self [id number] Ghi FHP-(DO Not Use) Medigap Part B [id number] Self [id number] [facility] Community Plan Commercial [id number] Self [id number] Ghi FHP-(DO Not Use) Medigap Part B [id number] Self [id number] [facility] Community Plan Commercial [id number] Self [id number] [employer]CE[employer] BCBS P [id number] S [id number] [employer] P [id number] S [id number] BLUE [employer] ANN PLAN [id number] SP [id number] BL[employer] PLAN [id number] SP [id number] HMO BLUE [id number] SP [id number] Problems, Conditions, and Diagnoses Code Display Name Description Problem Type Effective Dates Data Source(s) J45.20 [id number] Mild intermittent reactive airwa y disease without complication Problem 08/16/2020 12:00:00 AM EST eCW1 ([facility]) Surgeries/Procedures Procedure Description Date Indications Data Source(s) Medication: Silver Nitrate Stick topically 08/19/2020 12:00:00 AM EST eCW1 ([facility]) Spirometry 03/23/2020 12:00:00 AM EDT M BELINDA ([facility], ) Aerosol Or Vapor Inhalations 03/23/2020 12:00:00 AM ED T MEDFELIZ ([facility], ) STREP A ASSAY W/OPTIC 08/27/2019 12:00:00 AM EST eCW1 ([facility]) Results ID Date Data Source [id number] 08/27/2020 09:40:00 AM EST [facility] Name Value Range Interpretation Code Description Data Christiana rce(s) Supporting Document(s) SARS coronavirus 2 RNA Not Detected [facility] [place] This lab was ordered by [facility] and reported by [facility]. ID Date Data Source [id number] 10/22/2019 01:15:00 PM EDT [facility] Name Value Range Interpretation Code Description Data Christiana rce(s) Supporting Document(s) SARS CORONAVIRUS 2 RNA [facility] This lab was ordered by [facility] and reported by [facility]. ID Date Data Source GATS (NEGATIVE STREP SCREEN) 08/27/2019 12:00:00 AM EST eCW1 ([facility]) Name Value Range Interpretation Code Description Data Christiana rce(s) Supporting Document(s) FULL REPORT IN LAB NOTES (eCW and Medent). GATS CULTURE (NEG STREP SCR) eCW1 ([facility]) ID Date Data Source MONO - MONO SCREEN 08/27/2019 12:00:00 AM EST eCW1 ([facility]) Name Value Range Interpretation Code Description Data Christiana rce(s) Supporting Document(s) NEGATIVE NEGATIVE MONO SCRN eCW1 ([facility]) ID Date Data Source CBC - Complete Blood Count 08/27/2019 12:00:00 AM EST eCW1 ( [facility]) Name Value Range Interpretation Code Description Data Christiana rce(s) Supporting Document(s) 7.5 4.0-10.0 WHITE BLOOD COUNT [facility] 4.54 4.00-5.40 RED BLOOD COUNT eCW1 ([facility]) 41.5 36.0-47.0 HEMATOCRIT eCW1 ([facility]) 13.8 12.0-15.5 HEMOGLOBIN eCW1 ([facility]) 91.4 80.0-96.0 MEAN CORPUSCULAR VOLUME e CW1 ([facility]) 33.3 32.0-36.5 MEAN CORPUSCULAR HGB CONC eCW1 ([facility]) 13.2 11.5-14.5 RED CELL DISTRIBUTION WID TH eCW1 ([facility]) 30.4 27.0-33.0 MEAN CORPUSCULAR HEMOGLOB IN eCW1 ([facility]) 228 150-450 PLATELET COUNT, AUTOMATED eCW1 ([facility]) Procedure Social History Code Duration Value Status Description Data Source(s ) Smoking 08/19/2020 12:00:00 AM EST Never Smoker completed Never S moker eCW1 ([facility]) Smoking 08/19/2020 12:00:00 AM EST Never Smoker completed Never S moker eCW1 ([facility]) Smoking 08/19/2020 12:00:00 AM EST Never Smoker completed Never S moker eCW1 ([facility]) Smoking 08/19/2020 12:00:00 AM EST Never Smoker completed Never S moker eCW1 ([facility]) Smoking 07/15/2020 12:00:00 AM EST Never Smoker completed Never S moker eCW1 ([facility]) Smoking 07/15/2020 12:00:00 AM EST Never Smoker completed Never S moker eCW1 ([facility]) Smoking 07/15/2020 12:00:00 AM EST Never Smoker completed Never S moker eCW1 ([facility]) Smoking 07/02/2020 12:00:00 AM EST Never Smoker completed Never S moker eCW1 ([facility]) Smoking 07/02/2020 12:00:00 AM EST Never Smoker completed Never S moker eCW1 ([facility]) Smoking 05/17/2020 12:00:00 AM EST Patient has never smoked co mpleted Patient has never smoked MEDENT ([facility] ) Smoking 08/27/2019 12:00:00 AM EST Never Smoker completed Never S moker eCW1 ([facility]) Vital Signs ID Date Data Source UNK Name Value Range Interpretation Code Description Data Source(s) Diastolic blood pressure 67 mm[Hg] 67 mm[Hg] eCW1 ([facility]) Systolic blood pressure 117 mm[Hg] 117 mm[Hg] e CW1 ([facility]) Body temperature 99.1 [degF] 99.1 [degF] eCW1 ( [facility]) Respiratory rate 16 /min 16 /min eCW1 ([facility]) Heart rate 83 /min 83 /min eCW1 ([facility]) Body mass index (BMI) [Ratio] 25.94 kg/m2 25.94 kg/m2 eCW1 ([facility]) Body height [in_i] eCW1 ([facility]) Body weight 143 [lb_av] 143 [lb_av] eCW1 ([facility]) Diastolic blood pressure 72 mm[Hg] 72 mm[Hg] eCW1 ([facility]) Systolic blood pressure 111 mm[Hg] 111 mm[Hg] e CW1 ([facility]) Body temperature 97.3 [degF] 97.3 [degF] eCW1 ( [facility]) Respiratory rate 16 /min 16 /min eCW1 ([facility]) Heart rate 88 /min 88 /min eCW1 ([facility]) Body mass index (BMI) [Ratio] 25.78 kg/m2 25.78 kg/m2 eCW1 ([facility]) Body height [in_i] eCW1 ([facility]) Body weight 142.12 [lb_av] 142.12 [lb_av] eCW1 ([facility]) Diastolic blood pressure 85 mm[Hg] 85 mm[Hg] eCW1 ([facility]) Systolic blood pressure 124 mm[Hg] 124 mm[Hg] e CW1 ([facility]) Body temperature 98.4 [degF] 98.4 [degF] eCW1 ( [facility]) Respiratory rate 18 /min 18 /min eCW1 ([facility]) Heart rate 82 /min 82 /min eCW1 ([facility]) Body mass index (BMI) [Ratio] 27.03 kg/m2 27.03 kg/m2 eCW1 ([facility]) Body height [in_i] eCW1 ([facility]) Body weight 149 [lb_av] 149 [lb_av] eCW1 ([facility]) Diastolic blood pressure 68 mm[Hg] 68 mm[Hg] eCW1 ([facility]) Systolic blood pressure 116 mm[Hg] 116 mm[Hg] e CW1 ([facility]) Body temperature 99.5 [degF] 99.5 [degF] eCW1 ( [facility]) Respiratory rate 16 /min 16 /min eCW1 ([facility]) Heart rate 86 /min 86 /min eCW1 ([facility]) Body mass index (BMI) [Ratio] 27.03 kg/m2 27.03 kg/m2 eCW1 ([facility]) Body height [in_i] eCW1 ([facility]) Body weight 149 [lb_av] 149 [lb_av] eCW1 ([facility]) Body weight 64.865 kg 64.865 kg MEDENT ([facility]) [place] body weight 110 [lb_av] 110 [lb_av] MEDEN T ([facility]) Body mass index (BMI) [Ratio] 26.2 kg/m2 26.2 k g/m2 [facility] ([facility]) Body weight 143.00 [lb_av] 143.00 [lb_av] MEDEN T ([facility]) Body height 62 [in_i] 62 [in_i] [facility] ([facility]) 5'2" Oxygen saturation in Arterial blood by Pulse oximetry 98 % 98 % [facility] ([facility]) Room Air Heart rate 97 /min 97 /min [facility] ([facility]) Diastolic blood pressure 70 mm[Hg] 70 mm[Hg] [facility] ([facility]) Systolic blood pressure 110 mm[Hg] 110 mm[Hg] [facility] Body weight 64.865 kg 64.865 kg [facility] ([facility]) [place] body weight 110 [lb_av] 110 [lb_av] MEDEN T ([facility]) Body mass index (BMI) [Ratio] 26.2 kg/m2 26.2 k g/m2 [facility] ([facility]) Body weight 143.00 [lb_av] 143.00 [lb_av] MEDEN T ([facility]) Body height 62 [in_i] 62 [in_i] [facility] 5'2" Oxygen saturation in Arterial blood by Pulse oximetry 99 % 99 % [facility] ([facility]) Room Air Heart rate 82 /min 82 /min MEDENT ([facility], ) Diastolic blood pressure 72 mm[Hg] 72 mm[Hg] MEDENT ([facility], ) Systolic blood pressure 130 mm[Hg] 130 mm[Hg] M EDENT ([facility], ) Diastolic blood pressure 87 mm[Hg] 87 mm[Hg] eCW1 ([facility]) Systolic blood pressure 130 mm[Hg] 130 mm[Hg] e CW1 ([facility]) Body temperature 98.6 [degF] 98.6 [degF] eCW1 ( [facility]) Respiratory rate 18 /min 18 /min eCW1 ([facility]) Heart rate 107 /min 107 /min eCW1 ([facility]) Body mass index (BMI) [Ratio] 27.21 kg/m2 27.21 kg/m2 W1 ([facility]) Body height [in_us] eCW1 ([facility]) Body weight Measured 150 [lb_av] 150 [lb_av] eC W1 ([facility]) Diastolic blood pressure 75 mm[Hg] 75 mm[Hg] eCW1 ([facility]) Systolic blood pressure 109 mm[Hg] 109 mm[Hg] e CW1 ([facility]) Body temperature 99.1 [degF] 99.1 [degF] eCW1 ( [facility]) Respiratory rate 16 /min 16 /min eCW1 ([facility]) Heart rate 93 /min 93 /min eCW1 ([facility]) Body mass index (BMI) [Ratio] 26.27 kg/m2 26.27 kg/m2 W1 ([facility]) Body height [in_us] eCW1 ([facility]) Body weight Measured 144.8 [lb_av] 144.8 [lb_av ] eCW1 ([facility]) Patient Treatment Plan of Care Planned Activity Planned Date Details Description Data Source (s) Ondansetron 4 MG Oral Tablet [Zofran] 08/27/2020 12:00:00 AM EST eCW1 ([facility]) Ondansetron 4 MG Oral Tablet [Zofran] 08/27/2020 12:00:00 AM EST eCW1 ([facility]) eletriptan 20 MG Oral Tablet [Relpax] 07/19/2020 12:00:00 AM EST eCW1 ([facility]) eletriptan 20 MG Oral Tablet [Relpax] 07/19/2020 12:00:00 AM EST eCW1 ([facility]) eletriptan 20 MG Oral Tablet [Relpax] 07/19/2020 12:00:00 AM EST eCW1 ([facility]) Fluconazole 150 MG Oral Tablet [Diflucan] 07/02/2020 12:00:00 AM ES T eCW1 ([facility]) Fluconazole 150 MG Oral Tablet [Diflucan] 07/02/2020 12:00:00 AM ES T eCW1 ([facility])
--- OUTSIDE RECORDS SUMMARY | 2020-09-01 08:58 | CCD ---
Author Author [facility] Organization [facility] em[facility] Address Unknown Phone Unavailable Care Team Providers Care Fish Conservationist Name Role Phone Jesus Benavidez Unavailable PROBLEMS Type Condition ICD9-CM Code OYZ63-CM Code Onset Dates Condition S tatus W/U Status Risk SNOMED Code Notes Problem Migraine without aura and without status migrain osus, not intractable G43.009 Active confirmed 009875835 Problem Hemorrhoids, unspecified hemorrhoid type K64.9 Active confirmed 64769349 Problem Pain of both hip joints M25.551 Active confirmed 279498508 Problem Metrorrhagia N92.1 Active confirmed 4968330 3 Problem Rectal pain K62.89 Active confirmed 47406597 Problem Mild intermittent reactive airway disease without comp lication J45.20 Active confirmed 191442624 Problem Migraine headache 346.90 Active confirmed 37 466971 Problem Coccyx pain M53.3 Active confirmed 21527876 Problem Irregular menses N92.6 Active confirmed 386 310880 Problem Melanocytic nevi of scalp and neck D22.4 Activ e confirmed 142575029 Problem Migraine 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, not intractable, unspecified migraine type G43.909 Active confirmed 07673802 ALLERGIES Allergen (clinical drug ingredient) Drug/Non Drug Allergy do cumented on EMR Reaction Allergy Type Onset Date Status Air Duo chest pain Non Drug Allergy Active rizatriptan Maxalt([facility] Code:[address]-88) Anaphylaxis Drug Allergy Active naratriptan Amerge(ND Code:[address]-63) chest pressure Drug Allerg y Active budesonide / formoterol Symbicort(ND Code:[address]-00) Trigge rs migraines Drug Allergy Active sumatriptan Imitrex([facility] Code:[address]-05) Chest Pain Drug Allergy Active ENCOUNTERS from 1983 to 2020-08-27 Encounter Location Date Provider Diagnosis [facility] [place] [address] Aug Jesus Benavidez IMMUNIZATIONS Vaccine Route Administration Date Status TDAP [...] Education Language: Question Answer Notes Languages spoken: Bengali Quaker: Question Answer Notes Quaker 08 Restorationist No restorationism beliefs that would impact health care. Domestic [...] a day as needed for 26 days 04 Zeb, 2021 Active Zofran 4 MG 1 tablet Orally three times daily as needed for 10 day(s) Aug, Active Excedrin PM 500-38 MG 1 tablet at bedtime as needed Orally Once a day Active Probiotic - as directed Orally Activ e Albuterol Sulfate HFA 108 (90 Base) MCG/ACT 2 puffs as needed Inhalation every 6 hrs Active PROCEDURES No Information RESULTS No Results REASON FOR VISIT questions MEDICAL (GENERAL) HISTORY Type Description Date Medical History Chronic back pain Medical History Migraines Surgical History 4 [place] teeth removed Surgical History Uterine ablation- Dr Devries 12/2018 Hospitalization History Childbirth x4 Hospitalization History Started at [facility]-amb[facility]-Fatigue,SOB 06/13/19 Hospitalization History Well now -SOB-Zpak and prednisone 06/09/19 Goals Section No Information Health Concerns No Information MEDICAL EQUIPMENT No Information MENTAL STATUS No Information FUNCTIONAL STATUS No Information ASSESSMENTS No Information PLAN OF TREATMENT Medication Medication Name Sig Start Date Stop Date Zofran 4 MG 1 tablet Orally three times daily as nee ded for 10 day(s) Aug, Next Appt Details Provider Name:Jesus Benavidez, 08:30:00 AM, [address] [place], [address], Insurance Providers Payer Name Payer Address Payer Phone Insured Name Patient Relati onship to Insured Coverage Start Date Coverage End Date [facility] [employer] [address] [facility] [address] DEIDRA HARTMANN self
--- OUTSIDE RECORDS SUMMARY | 2020-09-01 08:58 | CCD ---
Author Author [facility] Organization [facility] ems Address Unknown Phone Unavailable Care Team Providers Care Novelty Chain Maker Name Role Phone Jesus Benavidez Unavailable PROBLEMS Type Condition ICD9-CM Code ANM39-XI Code Onset Dates Condition S tatus W/U Status Risk SNOMED Code Notes Problem Migraine without aura and without status migrain osus, not intractable G43.009 Active confirmed 571276733 Problem Hemorrhoids, unspecified hemorrhoid type K64.9 Active confirmed 52467160 Problem Pain of both hip joints M25.551 Active confirmed 515383026 Problem Metrorrhagia N92.1 Active confirmed 3488570 3 Problem Rectal pain K62.89 Active confirmed 19926874 Problem Mild intermittent reactive airway disease without comp lication J45.20 Active confirmed 924606988 Problem Migraine headache 346.90 Active confirmed 37 348144 Problem Coccyx pain M53.3 Active confirmed 19558222 Problem Irregular menses N92.6 Active confirmed 386 542202 Problem Melanocytic nevi of scalp and neck D22.4 Activ e confirmed 217298601 Problem Migraine 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, not intractable, unspecified migraine type G43.909 Active confirmed 78105699 ALLERGIES Allergen (clinical drug ingredient) Drug/Non Drug Allergy do cumented on EMR Reaction Allergy Type Onset Date Status Air Duo chest pain Non Drug Allergy Active rizatriptan Maxalt([facility] Code:[address]-34) Anaphylaxis Drug Allergy Active naratriptan Amerge(ND Code:[address]-12) chest pressure Drug Allerg y Active budesonide / formoterol Symbicort(ND Code:[address]-43) Trigge rs migraines Drug Allergy Active sumatriptan Imitrex([facility] Code:[address]-46) Chest Pain Drug Allergy Active ENCOUNTERS from 1983 to 2020-08-27 Encounter Location Date Provider Diagnosis [facility] [place] [address] Aug Jesus Benavidez IMMUNIZATIONS Vaccine Route Administration [...] Education Language: Question Answer Notes Languages spoken: Korean Baptism: Question Answer Notes Baptism 08 Jew No scientologist beliefs that would impact health care. Domestic [...] Information RESULTS No Results REASON FOR VISIT migraine MEDICAL (GENERAL) HISTORY Type Description Date Medical History Chronic back pain Medical History Migraines Surgical History 4 [place] teeth removed Surgical History Uterine ablation- Dr Devries 12/2018 Hospitalization History Childbirth x4 Hospitalization History Started [facility]-Fatigue,SOB 06/13/19 Hospitalization History Well now -SOB-Zpak and [...] Name:Jesus Benavidez, 08:30:00 AM, [address] [place], [address], Insurance Providers Payer Name Payer Address Payer Phone Insured Name Patient Relati onship to Insured Coverage Start Date Coverage End Date [facility] [address] [facility] [id number] DEIDRA HARTMANN self
[2020-09-01] MEDS ORDERED: SCOPOLAMINE 1MG TRANSDERMAL PATCH As Ordered ONE (09:47)
[2020-09-01 09:52] LABS: HEMATOCRIT 41.1 % (36.0-47.0); HEMOGLOBIN 13.7 g/dl (12.0-15.5); MEAN CORPUSCULAR HEMOGLOBIN 31.1 pg (27.0-33.0); MEAN CORPUSCULAR HGB CONC 33.3 g/dl (32.0-36.5); MEAN CORPUSCULAR VOLUME 93.4 fl (80.0-96.0); PLATELET COUNT, AUTOMATED 232 10^3/uL (150-450); WHITE BLOOD COUNT 5.3 10^3/uL (4.0-10.0)
[2020-09-01] MEDS ORDERED: SCOPOLAMINE 1MG TRANSDERMAL PATCH TOP ONE (10:00)
[2020-09-01] MEDS ORDERED: ELET20TA PO (10:00)
[2020-09-01 10:17] LABS: BLOOD UREA NITROGEN 7 MG/DL (7-18); CARBON DIOXIDE LEVEL 29 MEQ/L (21-32); CHLORIDE LEVEL 106 MEQ/L (98-107); CREATININE FOR GFR 0.76 MG/DL (0.55-1.30); GLOMERULAR FILTRATION RATE > 60.0 (>60); GLUCOSE, FASTING 86 MG/DL (70-100); POTASSIUM SERUM 4.2 MEQ/L (3.5-5.1); SODIUM LEVEL 140 MEQ/L (136-145)
[2020-09-01] MEDS ORDERED: dexameTHASONE 4 MG/ML 1ML VIAL (J1100 PER 1MG) As Ordered ONE (10:21)
[2020-09-01] MEDS ORDERED: ACETAMINOPHEN 1000MG 100ML IV BTL (OFIRMEV) (J0131 PER 10MG) As Ordered ONE (10:34)
[2020-09-01] MEDS ORDERED: ONDANSETRON 4MG/2ML VIAL As Ordered ONE (10:37)
[2020-09-01] MEDS ORDERED: SUGAMMADEX SODIUM 500 MG/5 ML VIAL (BRIDION) As Ordered ONE ×2 (10:37→10:38)
[2020-09-01] MEDS ORDERED: fentaNYL 100 MCG/2 ML INJECTION (J3010) As Ordered ONE (10:37)
[2020-09-01] MEDS ORDERED: METOCLOPRAMIDE INJ 10MG/2ML VIAL (J2765 PER 1) As Ordered ONE (10:37)
[2020-09-01] MEDS ORDERED: KETOROLAC 60MG 2ML VIAL As Ordered ONE (10:37)
[2020-09-01] MEDS ORDERED: ePHEDrine SULFATE 25 MG/5 ML(5MG/ML) SYRINGE As Ordered ONE (10:39)
[2020-09-01] MEDS ORDERED: HYDROMORPHONE HCL 0.5 MG/ 0.5 ML SYRINGE (J1170 PER 1) As Ordered ONE ×2 (11:47→12:10)
[2020-09-01] MEDS: HYDROMORPHONE HCL 0.5 MG/ 0.5 ML SYRINGE (J1170 PER 1) IV PRN ×3 (11:50→12:12)
[2020-09-01] MEDS ORDERED: IBUP80TA PO (11:55)
[2020-09-01] MEDS ORDERED: PERC5TAB12 PO (11:55)
[2020-09-01] MEDS ORDERED: oxyCODONE 5MG TAB As Ordered ONE (12:02)
[2020-09-01] MEDS ORDERED: ONDANSETRON 4MG/2ML VIAL IV PRN (12:30)
[2020-09-01] MEDS ORDERED: LR 1,000 ML IV SCH ×2 (12:30→13:00)
[2020-09-01] MEDS ORDERED: oxyCODONE 5MG TAB PO PRN (12:30)
[2020-09-01] MEDS ORDERED: fentaNYL 100 MCG/2 ML INJECTION (J3010) IV PRN (12:30)
--- NOTE | 2020-09-01 12:58 | RO ---
OPERATIVE NOTE DATE OF OPERATION: 09/01/2020 Mariya is a 35-year-old female with symptomatic uterovaginal prolapse and dyspareunia. After counseling in the office the decision was made for total vaginal hysterectomy, possible anterior posterior repair or perineorrhaphy. PREOPERATIVE DIAGNOSES: 1. Symptomatic uterovaginal prolapse. 2. Dyspareunia. POSTOPERATIVE DIAGNOSES: 1. Symptomatic uterovaginal prolapse. 2. Dyspareunia. 3. Significant rectocele with gaping introitus. PROCEDURES: 1. Total vaginal hysterectomy. 2. Removal of both tubes. 3. Posterior repair. 4. Perineorrhaphy. SURGEON: Brad Ribera DO TOOL MAKER BENCH: ANESTHESIA: General. COMPLICATIONS: None. ESTIMATED BLOOD LOSS: Less than 150 mL. SPECIMEN SENT TO THE LAB: Uterus, tubes, vaginal mucosa. DESCRIPTION OF PROCEDURE: After obtaining informed consent, the patient was taken to the operating room where general anesthetic was found to be adequate. She was then prepped and draped in usual sterile fashion in dorsal lithotomy position. At this point Flores catheter was placed in the bladder for drainage. We then placed a weighted speculum in posterior fornix of the vagina. Using Nuñez retractor the anterior and posterior lip of the cervix was grasped with two [facility] clamps. The cervix was then infiltrated in circumferential manner with Pitressin. Using the Bovie circumferential incision was made over the cervix. The anterior and posterior cul-de-sac was then entered. Two Farzana clamps were then placed at the level of the uterosacral ligament which was cut and suture ligated using #0 Vicryl suture. These two sutures were left in place for closure of the vaginal cuff. At this point serial bites were taken to include the uterine artery, uteroovarian ligament. These were clamped, cut and suture ligated using #0 Vicryl suture. At this point we were able to grab the tube with Roger, the ovaries were found to be within normal limits. The tubes were then clamped with Farzana clamp, cut and suture ligated using #0 Vicryl suture. The opposite side was done in similar fashion. Bilateral tubes, uterus and cervix were removed and sent to pathology. We then turned our attention to the level of the uterosacral ligaments which were both imbricated to the posterior vaginal cuff with #0 Vicryl suture. The peritoneum was then closed in pursestring fashion using 2-0 Vicryl, vaginal cuff closed using the pre-placed sutures of at the level of the uterosacral ligaments in two separate segments. A piece of Surgicel was oversewn in the vaginal cuff for good hemostasis. Excellent hemostasis was noted. The weighted speculum was removed. I then turned attention to the rectocele that was noted in the gaping introitus. I then placed two Allis' at the level of the vaginal orifice and one posteriorly in the perineal body. Triangular incision was made over that area. The excess skin was removed. The vaginal mucosa was undermined in midline fascia and the excess vaginal mucosa was removed off the rectal mucosa and that area was imbricated. We then closed the vaginal mucosa using 2-0 Vicryl in running fashion. The perineal body was recreated using #0 Vicryl suture and the skin over that area was closed using 2-0 Vicryl suture in subcuticular fashion. Good hemostasis noted. The Flores catheter was left for drainage. The patient was transferred to the recovery room in stable condition. cc: [facility]
[2020-09-01] MEDS ORDERED: SIMETHICONE 80MG CHEW TAB PO SCH ×2 (13:00→18:00)
[2020-09-01] MEDS ORDERED: PERCOCET 5MG/325MG TAB PO PRN (13:00)
[2020-09-01 13:20] VITALS: BP 101/58
[2020-09-01 13:50] VITALS: BP 106/59
[2020-09-01 15:00] VITALS: BP 101/54
[2020-09-01 16:00] VITALS: BP 107/61
[2020-09-01] MEDS ORDERED: IBUPROFEN 800 MG TAB PO SCH (16:00)
[2020-09-01 17:00] VITALS: BP 109/61
[2020-09-01 18:00] VITALS: BP 100/59
== END 2020-09-01 19:30 | disposition home or self-care (01) ==
LOC: M SDC 08:53 → M PED 13:20 → M SDC 19:30
PROVIDERS: ATTEND Obstetrics & Gynecology
DX: N81.2 Incomplete uterovaginal prolapse (principal); N94.12 Deep dyspareunia; N81.6 Rectocele; N90.89 Other specified noninflammatory disorders of vulva and perineum; N72 Inflammatory disease of cervix uteri; L30.9 Dermatitis, unspecified; G43.909 Migraine, unspecified, not intractable, without status migrainosus; J45.909 Unspecified asthma, uncomplicated; Z88.8 Allergy status to other drugs, medicaments and biological substances
CPT/HCPCS: 36415; 57250; 58552; 80048; 81025; 85027; 86850; 86900; 86901; 88302; 88307; 96360; 96361; 96374; J0131; J0690; J1100; J1885; J2250; J2405; J2765; J3010

== ENCOUNTER → 2020-10-08 | Outpatient (CLI) | payer SELFPAY ==
[~2020-10-08] MED LIST changes: +ELET20TA PO; +IBUP80TA PO; -LIDOCAINE 2% 100MG/5ML SDV (FOR ANES.) As Ordered ONE; -LR 1,000 ML IV ONE; -MIDAZOLAM INJ 2MG/2ML VIAL (J2250 PER 1MG) As Ordered ONE; +PERC5TAB12 PO; -ROCURONIUM BROMIDE 50 MG/5 ML VIAL As Ordered ONE; -VASOPRESSIN INJ 20 UNITS/ML VIAL As Ordered ONE; -ceFAZolin SOD 2 GM in IV 1 EA IV ONE; -fentaNYL 100 MCG/2 ML INJECTION (J3010) As Ordered ONE; -propofoL 200 MG/20 ML VIAL As Ordered ONE
== END ==
LOC: M LABSMTC 13:55
PROVIDERS: ATTEND Pediatrics
DX: Z20.822 Contact with and (suspected) exposure to COVID-19 (principal)

== ENCOUNTER → 2020-11-30 | Outpatient (CLI) | payer OTHER ==
--- NOTE | 2020-11-30 09:22 | REP ---
INDICATION: S99.911A, INJURY OF RIGHT ANKLE COMPARISON: None. TECHNIQUE: AP, lateral, bilateral oblique views. FINDINGS: Mild swelling over the lateral malleolus suggesting inversion injury. Subtle irregularity of the distal fibula suggests old injury. No obvious acute fracture. Ankle mortise intact. IMPRESSION: Lateral swelling suggesting acute inversion injury. Possible old fracture of the distal fibula. No acute fracture or dislocation. <Electronically signed by Rod Oneill > 11/30/20 0918
== END ==
LOC: M CLY 08:54
PROVIDERS: ATTEND Physician Assistant
DX: S99.911A Unspecified injury of right ankle, initial encounter (principal)

== ENCOUNTER → 2020-12-28 | Outpatient (REF) | payer OTHER | LOC: M SFHCCLAY 15:45 | PROVIDERS: ATTEND Physician Assistant | DX: J02.9 Acute pharyngitis, unspecified (principal) ==

== ENCOUNTER → 2021-02-02 | Outpatient (CLI) | payer OTHER ==
--- NOTE | 2021-02-02 09:56 | REP ---
INDICATION: S99.922A INJURY OF LEFT FOOT COMPARISON: None. TECHNIQUE: Four views left foot. FINDINGS: There is no evidence of acute fracture, dislocation, or intrinsic bone disease.The joint spaces are unremarkable. IMPRESSION: No fracture or dislocation. <Electronically signed by Scott Catherine > 02/02/21 0952
== END ==
LOC: M CLY 09:31
PROVIDERS: ATTEND Physician Assistant
DX: S99.922A Unspecified injury of left foot, initial encounter (principal)

== ENCOUNTER → 2021-02-02 | Outpatient (REF) | payer OTHER ==
[2021-02-02 17:43] LABS: BASO # 0.1 10^3/uL (0.0-0.2); BASO % 0.8 % (0.0-1.0); EOS # 0.1 10^3/uL (0.0-0.5); EOS % 1.7 % (0.0-3.0); HEMATOCRIT 43.2 % (36.0-47.0); HEMOGLOBIN 14.5 g/dl (12.0-15.5); LYMPH % 28.3 % (24.0-44.0); MEAN CORPUSCULAR HEMOGLOBIN 31.3 pg (27.0-33.0); MEAN CORPUSCULAR HGB CONC 33.6 g/dl (32.0-36.5); MEAN CORPUSCULAR VOLUME 93.1 fl (80.0-96.0); MONO # 0.7 10^3/uL (0.0-0.8); MONO % 9.7 % (2.0-8.0); NEUTROPHILS # 4.2 10^3/uL (1.5-8.5); NEUTROPHILS % 59.2 % (36.0-66.0); PLATELET COUNT, AUTOMATED 239 10^3/uL (150-450); RED BLOOD COUNT 4.64 10^6/uL (4.00-5.40); WHITE BLOOD COUNT 7.1 10^3/uL (4.0-10.0)
[2021-02-04 17:08] LABS: EBV AB TO NUCLEAR ANTIGEN >600.0 U/mL (0.0-17.9); EBV VIRAL CAPSID AG IgM <36.0 U/mL (0.0-35.9)
== END ==
LOC: M SFHCCLAY 09:36
PROVIDERS: ATTEND Physician Assistant
DX: J35.01 Chronic tonsillitis (principal)

== ENCOUNTER → 2021-10-26 | Outpatient (REF) | payer OTHER ==
[2021-10-26 16:03] LABS: BASO # 0.1 10^3/uL (0.0-0.2); BASO % 0.7 % (0.0-1.0); EOS # 0.2 10^3/uL (0.0-0.5); EOS % 1.8 % (0.0-3.0); HEMATOCRIT 40.5 % (36.0-47.0); HEMOGLOBIN 13.7 g/dl (12.0-15.5); LYMPH # 2.3 10^3/uL (1.5-5.0); LYMPH % 26.5 % (24.0-44.0); MEAN CORPUSCULAR HEMOGLOBIN 31.5 pg (27.0-33.0); MEAN CORPUSCULAR HGB CONC 33.8 g/dl (32.0-36.5); MEAN CORPUSCULAR VOLUME 93.1 fl (80.0-96.0); MONO # 0.8 10^3/uL (0.0-0.8); MONO % 9.7 % (2.0-8.0); NEUTROPHILS # 5.3 10^3/uL (1.5-8.5); PLATELET COUNT, AUTOMATED 255 10^3/uL (150-450); RED BLOOD COUNT 4.35 10^6/uL (4.00-5.40); WHITE BLOOD COUNT 8.7 10^3/uL (4.0-10.0)
[2021-10-26 16:35] LABS: ALBUMIN 3.7 GM/DL (3.2-5.2); ALT/SGPT 33 U/L (12-78); BILIRUBIN,TOTAL 0.3 MG/DL (0.2-1.0); BLOOD UREA NITROGEN 11 MG/DL (7-18); CALCIUM LEVEL 9.5 MG/DL (8.5-10.1); CARBON DIOXIDE LEVEL 26 MEQ/L (21-32); CHLORIDE LEVEL 106 MEQ/L (98-107); GLOMERULAR FILTRATION RATE > 60.0 (>60); GLUCOSE, FASTING 90 MG/DL (70-100); POTASSIUM SERUM 4.5 MEQ/L (3.5-5.1); RHEUMATOID FACTOR QUANT < 10.0 IU/ML (<15.0); SODIUM LEVEL 139 MEQ/L (136-145); TOTAL PROTEIN 6.4 GM/DL (6.4-8.2)
[2021-10-26 18:07] LABS: ERYTHROCYTE SEDIMENTATION RATE 9 mm/hr (0-20)
[2021-10-28 12:08] LABS: ANTINUCLEAR ANTIBODIES DIRECT Negative (Negative)
== END ==
LOC: M LABDRAWC 15:33
PROVIDERS: ATTEND Psychiatry & Neurology Neurology
DX: R51.9 Headache, unspecified (principal)

== ENCOUNTER → 2021-12-02 | Outpatient (REF) | payer OTHER ==
[~2021-12-02] MED LIST changes: +EXCETAB32 PO; -EXCETAB33 PO
[2021-12-02 11:41] LABS: BASO % 0.4 % (0.0-1.0); EOS # 0.1 10^3/uL (0.0-0.5); EOS % 1.7 % (0.0-3.0); HEMATOCRIT 42.5 % (36.0-47.0); HEMOGLOBIN 14.1 g/dl (12.0-15.5); LYMPH # 2.3 10^3/uL (1.5-5.0); LYMPH % 33.5 % (24.0-44.0); MEAN CORPUSCULAR HEMOGLOBIN 31.6 pg (27.0-33.0); MEAN CORPUSCULAR HGB CONC 33.2 g/dl (32.0-36.5); MEAN CORPUSCULAR VOLUME 95.3 fl (80.0-96.0); MONO # 0.6 10^3/uL (0.0-0.8); MONO % 8.9 % (2.0-8.0); NEUTROPHILS # 3.8 10^3/uL (1.5-8.5); NEUTROPHILS % 55.1 % (36.0-66.0); PLATELET COUNT, AUTOMATED 227 10^3/uL (150-450); RED BLOOD COUNT 4.46 10^6/uL (4.00-5.40); WHITE BLOOD COUNT 6.9 10^3/uL (4.0-10.0)
[2021-12-02 12:20] LABS: ALBUMIN 3.6 GM/DL (3.2-5.2); ALT/SGPT 22 U/L (12-78); BILIRUBIN,TOTAL 0.5 MG/DL (0.2-1.0); BLOOD UREA NITROGEN 8 MG/DL (7-18); CALCIUM LEVEL 8.4 MG/DL (8.5-10.1); CARBON DIOXIDE LEVEL 28 MEQ/L (21-32); CHLORIDE LEVEL 108 MEQ/L (98-107); CREATININE FOR GFR 0.73 MG/DL (0.55-1.30); FREE T4 1.02 NG/DL (0.76-1.46); GLOMERULAR FILTRATION RATE > 60.0 (>60); GLUCOSE, FASTING 88 MG/DL (70-100); POTASSIUM SERUM 4.1 MEQ/L (3.5-5.1); SODIUM LEVEL 139 MEQ/L (136-145); TOTAL PROTEIN 6.3 GM/DL (6.4-8.2)
== END ==
LOC: M SFHCCLAY 08:39
PROVIDERS: ATTEND Family Medicine
DX: R19.5 Other fecal abnormalities (principal); R19.7 Diarrhea, unspecified

== ENCOUNTER → 2022-01-30 | Outpatient (REF) | payer OTHER ==
[2022-01-30 17:43] LABS: BACTERIA, URINE AUTO NEGATIVE (NEGATIVE); RBC, URINE AUTO 0 /HPF (0-3); SQUAMOUS EPITHELIAL CELL UR AU 0 /HPF (0-6); WBC, URINE AUTO 0 /HPF (0-3)
[2022-01-30 18:55] LABS: GC DNA AMPLIFICATION NEGATIVE (NEGATIVE)
== END ==
LOC: M SFHCCLAY 13:39
PROVIDERS: ATTEND Physician Assistant
DX: R82.90 Unspecified abnormal findings in urine (principal)

== ENCOUNTER → 2022-02-03 | Outpatient (REF) | payer OTHER ==
[2022-02-03 21:13] LABS: BACTERIA, URINE AUTO NEGATIVE (NEGATIVE); RBC, URINE AUTO 0 /HPF (0-3); SQUAMOUS EPITHELIAL CELL UR AU 1 /HPF (0-6); WBC, URINE AUTO 0 /HPF (0-3)
[2022-02-03 22:32] LABS: GC DNA AMPLIFICATION NEGATIVE (NEGATIVE)
== END ==
LOC: M LAB REF 19:44
PROVIDERS: ATTEND Physician Assistant
DX: R19.5 Other fecal abnormalities (principal); R82.90 Unspecified abnormal findings in urine

== ENCOUNTER → 2022-05-08 | Outpatient (CLI) | payer OTHER | LOC: M CLY 09:43 | PROVIDERS: ATTEND Family Medicine | DX: M41.9 Scoliosis, unspecified (principal) ==

== ENCOUNTER → 2022-05-08 | Outpatient (REF) | payer OTHER ==
[2022-05-10 17:07] LABS: H PYLORI SERUM QUANT IGA <9.0 units (0.0-8.9); H PYLORI SERUM QUANT IGM <9.0 units (0.0-8.9); H PYLORI SERUM QUANT IgG ABY 0.08 (0.00-0.79)
== END ==
LOC: M SFHCCLAY 09:31
PROVIDERS: ATTEND Family Medicine
DX: R12 Heartburn (principal); R10.84 Generalized abdominal pain

== ENCOUNTER → 2022-10-26 | Outpatient (CLI) | payer OTHER | LOC: M CLY 13:04 | PROVIDERS: ATTEND Family Medicine | DX: R06.00 Dyspnea, unspecified (principal) ==

== ENCOUNTER → 2023-11-13 | Outpatient (REF) | payer OTHER ==
[2023-11-13 18:03] LABS: BASO # 0.1 10^3/uL (0.0-0.2); BASO % 0.6 % (0.0-1.0); EOS # 0.1 10^3/uL (0.0-0.5); EOS % 1.6 % (0.0-3.0); HEMATOCRIT 43.2 % (36.0-47.0); HEMOGLOBIN 14.4 g/dl (12.0-15.5); LYMPH # 2.9 10^3/uL (1.5-5.0); LYMPH % 32.2 % (24.0-44.0); MEAN CORPUSCULAR HEMOGLOBIN 31.1 pg (27.0-33.0); MEAN CORPUSCULAR HGB CONC 33.3 g/dl (32.0-36.5); MEAN CORPUSCULAR VOLUME 93.3 fl (80.0-96.0); MONO # 0.9 10^3/uL (0.0-0.8); MONO % 10.1 % (2.0-8.0); NEUTROPHILS # 4.9 10^3/uL (1.5-8.5); NEUTROPHILS % 55.3 % (36.0-66.0); PLATELET COUNT, AUTOMATED 259 10^3/uL (150-450); RED BLOOD COUNT 4.63 10^6/uL (4.00-5.40); WHITE BLOOD COUNT 8.9 10^3/uL (4.0-10.0)
[2023-11-13 18:07] LABS: ALBUMIN 3.7 G/DL (3.2-5.2); ALKALINE PHOSPHATASE 85 U/L (46-116); ALT/SGPT 16 U/L (7.0-40); AST/SGOT 12 U/L (<34); BILIRUBIN,TOTAL 0.2 MG/DL (0.3-1.2); BLOOD UREA NITROGEN 7 MG/DL (9-23); CARBON DIOXIDE LEVEL 27 MMOL/L (20-31); CHLORIDE LEVEL 107 MMOL/L (98-107); CREATININE FOR GFR 0.64 MG/DL (0.55-1.30); GLOMERULAR FILTRATION RATE > 60.0 (>58); GLUCOSE, FASTING 85 MG/DL (60-100); POTASSIUM SERUM 3.8 MMOL/L (3.5-5.1); SODIUM LEVEL 141 MMOL/L (136-145); TOTAL PROTEIN 6.5 G/DL (5.7-8.2)
[2023-11-13 18:11] LABS: THYROID STIMULATING HORMONE 2.286 uIU/ML (0.55-4.78)
[2023-11-13 18:12] LABS: ESTRADIOL 47.3 PG/ML; FOLLICLE STIMULATING HORMONE 11.6 mIU/ML; FREE T4 0.97 NG/DL (0.89-1.76); LUTEINIZING HORMONE 9.7 mIU/ML
[2023-11-13 18:13] LABS: PROGESTERONE 1.13 NG/ML
== END ==
LOC: M SFHCCLAY 14:13
PROVIDERS: ATTEND Family Medicine
DX: E34.9 Endocrine disorder, unspecified (principal); R53.83 Other fatigue

== ENCOUNTER → 2024-04-22 | Outpatient (REF) | payer OTHER ==
[2024-04-22 17:35] LABS: C REACTIVE PROTEIN QUANTITATIV < 0.40 MG/DL (<1.0)
== END ==
LOC: M SFHCCLAY 07:59
PROVIDERS: ATTEND Physician Assistant
DX: R21 Rash and other nonspecific skin eruption (principal)

== ENCOUNTER → 2024-11-14 | Outpatient (REF) | payer OTHER ==
[2024-11-14 12:37] LABS: BASO # 0.1 10^3/uL (0.0-0.2); BASO % 0.7 % (0.0-1.0); EOS # 0.1 10^3/uL (0.0-0.5); HEMATOCRIT 45.5 % (36.0-47.0); HEMOGLOBIN 15.5 g/dl (12.0-15.5); LYMPH # 2.6 10^3/uL (1.5-5.0); LYMPH % 36.3 % (24.0-44.0); MEAN CORPUSCULAR HEMOGLOBIN 31.4 pg (27.0-33.0); MEAN CORPUSCULAR HGB CONC 34.1 g/dl (32.0-36.5); MEAN CORPUSCULAR VOLUME 92.1 fl (80.0-96.0); MONO # 0.6 10^3/uL (0.0-0.8); MONO % 7.8 % (2.0-8.0); NEUTROPHILS # 3.7 10^3/uL (1.5-8.5); NEUTROPHILS % 53.1 % (36.0-66.0); PLATELET COUNT, AUTOMATED 240 10^3/uL (150-450); RED BLOOD COUNT 4.94 10^6/uL (4.00-5.40)
[2024-11-14 13:08] LABS: FREE T4 1.18 NG/DL (0.89-1.76)
[2024-11-14 13:09] LABS: ALBUMIN 4.2 G/DL (3.2-5.2); ALKALINE PHOSPHATASE 78 U/L (35-104); ALT/SGPT 19 U/L (7.0-40); AST/SGOT 18 U/L (<34); BILIRUBIN,TOTAL 0.3 MG/DL (0.3-1.2); BLOOD UREA NITROGEN 14 MG/DL (9-23); CALCIUM LEVEL 9.7 MG/DL (8.5-10.1); CARBON DIOXIDE LEVEL 24 MMOL/L (20-31); CHLORIDE LEVEL 109 MMOL/L (98-107); CHOLESTEROL LEVEL 203 MG/DL (<200); CHOLESTEROL RISK RATIO 2.81 (<5); CREATININE FOR GFR 0.65 MG/DL (0.55-1.30); ESTRADIOL 78.7 PG/ML; GLOMERULAR FILTRATION RATE > 90.0 (>58); GLUCOSE, FASTING 87 MG/DL (60-100); HDL CHOLESTEROL 72.1 MG/DL (>40); LDL CHOLESTEROL 117.1 MG/DL (<100); NON-HDL-C 130.9 MG/DL; POTASSIUM SERUM 4.5 MMOL/L (3.5-5.1); SODIUM LEVEL 141 MMOL/L (136-145); TRIGLYCERIDES LEVEL 69 MG/DL (<150)
[2024-11-14 13:10] LABS: FOLLICLE STIMULATING HORMONE 4.9 mIU/ML; LUTEINIZING HORMONE 8.1 mIU/ML; THYROID STIMULATING HORMONE 3.161 uIU/ML (0.55-4.78)
== END ==
LOC: M SFHCCLAY 07:41
PROVIDERS: ATTEND Family Medicine
DX: E34.9 Endocrine disorder, unspecified (principal); R53.83 Other fatigue; M54.2 Cervicalgia

== ENCOUNTER 2025-01-26 08:30 | Outpatient (RCR) | payer OTHER | END 2025-02-12 | LOC: M PT 08:30 | PROVIDERS: ATTEND Otolaryngology | DX: M26.603 Bilateral temporomandibular joint disorder, unspecified (principal) ==

== ENCOUNTER 2025-03-03 09:15 | Outpatient (RCR) | payer OTHER | END 2025-03-15 | LOC: M PT 09:15 | PROVIDERS: ATTEND Otolaryngology | DX: M26.603 Bilateral temporomandibular joint disorder, unspecified (principal) ==

== ENCOUNTER → 2025-06-04 | Outpatient (REF) | payer OTHER ==
[2025-06-04 13:05] LABS: FREE T4 1.16 NG/DL (0.89-1.76); TOTAL T3 114.0 NG/DL (60.0-181.0)
[2025-06-04 13:06] LABS: IRON (FE) 138.0 UG/DL (50-170)
[2025-06-04 13:07] LABS: VITAMIN B12 LEVEL 292.0 PG/ML (211-911)
== END ==
LOC: M SFHCCLAY 07:43
PROVIDERS: ATTEND Family Medicine
DX: R00.0 Tachycardia, unspecified (principal); E34.9 Endocrine disorder, unspecified; R53.83 Other fatigue; M25.50 Pain in unspecified joint; N92.6 Irregular menstruation, unspecified

== ENCOUNTER 2025-06-09 08:25 | Outpatient (RCR) | payer OTHER | END 2025-06-14 | LOC: M PT 08:25 | PROVIDERS: ATTEND Family Medicine | DX: M54.9 Dorsalgia, unspecified (principal) ==

== ENCOUNTER 2025-06-30 08:30 | Outpatient (RCR) | payer OTHER | END 2025-07-15 | LOC: M PT 08:30 | PROVIDERS: ATTEND Family Medicine | DX: M54.9 Dorsalgia, unspecified (principal) ==